=== PATIENT | female | born 1980 | race Caucasian/White ===

== ENCOUNTER → 2018-04-17 | Outpatient (CLI) | payer BC ==
--- NOTE | 2018-04-19 12:41 | MM ---
Reason for exam: screening (asymptomatic). Last mammogram was performed 5 years and 1 month ago. History: Patient is nulliparous. Taking hormonal contraceptives. Physical Findings: A clinical breast exam by your physician is recommended on an annual basis and results should be correlated with mammographic findings. MG Screening Mammo w CAD Bilateral CC and MLO view(s) were taken. Prior study comparison: March 05, 2013, mammogram, performed at [facility]. The breast tissue is heterogeneously dense. This may lower the sensitivity of mammography. No suspicious abnormality. No significant changes when compared with prior studies. ASSESSMENT: Negative, BI-RAD 1 RECOMMENDATION: Routine screening mammogram of both breasts in 1 year.
== END | disposition home or self-care (01) ==
LOC: RADMAMWWP 16:53
PROVIDERS: ATTEND Obstetrics & Gynecology
DX: Z12.31 Encounter for screening mammogram for malignant neoplasm of breast (principal)
CPT/HCPCS: 77067

== ENCOUNTER 2018-05-03 00:31 | Emergency (ER) | payer BC ==
[2018-05-03 00:55] VITALS: BP 149/88; PULSE 86; RESP 18; TEMP 98
--- NOTE | 2018-05-03 03:08 | ED ---
Wound/Laceration HPI - General Chief Complaint: Wound/Laceration Stated Complaint: Laceration, Face Time Seen by Provider: 05/03/18 02:08 Source: patient, RN notes reviewed, old records reviewed Mode of arrival: ambulatory Limitations: no limitations - History of Present Illness Initial Comments: Patient is a 38-year-old female presents returns today and she cleaning a laceration over the left cheek. Patient reports that she was in the shower no tonsillar she slipped and fell on her face hit the edge of the faucet. Tetanus is up-to-date. She denies any pain with range of motion of her mouth. No intraoral lesions. - Related Data Allergies Allergy/AdvReac Type Severity Reaction Status Date / Time No Known Allergies Allergy Verified 05/03/18 00:56 Review of Systems ROS Statement: Those systems with pertinent positive or pertinent negative responses have been documented in the HPI. ROS Other: All systems not noted in ROS Statement are negative. Past Medical History Past Medical History: No Reported History History of Any Multi-Drug Resistant Organisms: None Reported Past Surgical History: Tonsillectomy Past Psychological History: No Psychological Hx Reported Smoking Status: Current every day smoker Past Alcohol Use History: Occasional Past Drug Use History: Marijuana General Exam - General Exam Comments Initial Comments: 38-year-old male. Alert and oriented. Patient Patient distress. Limitations: no limitations General appearance: alert, in no apparent distress Head exam: Present: atraumatic, normocephalic, normal inspection Eye exam: Present: normal appearance, PERRL, EOMI. Absent: scleral icterus, conjunctival injection, periorbital swelling ENT exam: Present: normal exam, mucous membranes moist, other (Patient has a melgar-shaped 3; laceration over left cheek.) Neck exam: Present: normal inspection. Absent: tenderness, meningismus, lymphadenopathy Respiratory exam: Present: normal lung sounds bilaterally. Absent: respiratory distress, wheezes, rales, rhonchi, stridor GI/Abdominal exam: Present: soft, normal bowel sounds. Absent: distended, tenderness, guarding, rebound, rigid Extremities exam: Present: normal inspection, full ROM, normal capillary refill. Absent: tenderness, pedal edema, joint swelling, calf tenderness Back exam: Present: normal inspection Neurological exam: Present: alert, oriented X3, CN II-XII intact Psychiatric exam: Present: normal affect, normal mood Course Vital Signs 05/03/18 00:52 Temperature 98 F Pulse Rate 86 Respiratory 18 Rate Blood Pressure 149/88 O2 Sat by Pulse 98 Oximetry Procedures - Laceration Laceration #1 Site: face (Left cheek) Size (cm): 3 Description: irregular Depth: simple, single layer Anesthetic Used: lidocaine 1% Anesthesia Technique: local infiltration Amount (mls): 3 Pre-repair: wound explored, irrigated extensively Type of Sutures: nylon Size of Sutures: 6-0 Number of Sutures: 5 Technique: simple, interrupted Patient Tolerated Procedure: well, no complications Medical Decision Making - Medical Decision Making Patient is a 38-year-old female presents or return to facial laceration. She has a 3 cm margin laceration over the left cheek. Symptoms occurred after she fell shower in a hotel. His her face on the faucet. She has no muscle involvement. Patient has no intraoral lacerations. Patient's wound was closed with 5 sutures. Patient at this time advised on suture care and discussed monitoring for any signs of infection. All questions and to return parameters were discussed. Disposition Clinical Impression: Facial laceration Disposition: HOME SELF-CARE Condition: Good Instructions: Facial Laceration (ED) Additional Instructions: Patient advised to have close follow-up with primary care physician. Motrin Tylenol for pain and swelling. Ice the area. Please return to the emergency room in 5-7 days to have sutures removed. Please leave wound covered for the first 24-48 hours and then leave open to air after that time. Please use clean soap and water to clean the suture area to prevent scabbing over the top of your sutures. Please watch for any signs of infection which may include but not limited to increased pain, swelling, redness, fever or chills. Please return to the emergency room if any signs of infection do occur. Please return to the emergency room for any other concerns or complications. Is patient prescribed a controlled substance at d/c from ED?: No Referrals: None,Stated [Primary Care Provider] - 1-2 days Time of Disposition: 03:08
== END 2018-05-03 03:16 | disposition home or self-care (01) ==
LOC: EC 00:31
DX: S01.412A Laceration without foreign body of left cheek and temporomandibular area, initial encounter (principal); F17.200 Nicotine dependence, unspecified, uncomplicated; W18.2XXA Fall in (into) shower or empty bathtub, initial encounter; Y92.009 Unspecified place in unspecified non-institutional (private) residence as the place of occurrence of the external cause
CPT/HCPCS: 12013; 99283

== ENCOUNTER → 2018-08-21 | Outpatient (CLI) | payer BC ==
--- NOTE | 2018-08-22 08:47 | US ---
EXAMINATION TYPE: US transvaginal DATE OF EXAM: 08/21/2018 COMPARISON: NONE CLINICAL HISTORY: R10.2 PELVIC PAIN. Pain TECHNIQUE: Transvaginal (TV Date of LMP. 3 months ago on BCP. EXAM MEASUREMENTS: Uterus: 6.8 x 3.5 x 3.9 cm Endometrial Stripe: .2 cm 1. Uterus: Anteverted Complex fluid area seen measuring 1.8 cm. 2. Endometrium: wnl 3. Right Ovary: Obscured by overlying bowel gas 4. Left Ovary: Obscured by overlying bowel gas 5. Bilateral Adnexa: wnl 6. Posterior cul-de-sac: wnl Heterogeneous uterus is seen. Endometrial stripe is hypoechoic suggesting possible small amount of fl uid. There is a 1.8 cm slightly irregular central fluid collection in the cervix presumed in the endo metrial cervical canal. No free fluid in pelvic cul-de-sac. Neither ovary clearly identified. No suspicious adnexal lesion is seen. IMPRESSION: Suboptimal study with small amount of fluid felt within the intrauterine endometrial desmond l as well as slightly more prominent slightly irregular fluid in the endometrial canal at level of ce rvix. No adnexal lesions are seen but ovaries are not clearly identified on images saved.
== END | disposition home or self-care (01) ==
LOC: RADUSWWP 16:56
PROVIDERS: ATTEND Obstetrics & Gynecology
DX: R93.89 Abnormal findings on diagnostic imaging of other specified body structures (principal); R10.2 Pelvic and perineal pain
CPT/HCPCS: 76830

== ENCOUNTER → 2018-10-02 | Outpatient (CLI) | payer BC ==
--- NOTE | 2018-10-02 11:37 | US ---
EXAMINATION TYPE: US transvaginal DATE OF EXAM: 10/02/2018 COMPARISON: 08/21/2018 CLINICAL HISTORY: R93.89 Abnormal Pelvic Ultra Sound. Follow up from prior ultrasound TECHNIQUE: Transvaginal (TV) Date of LMP: 09/21/18 EXAM MEASUREMENTS: Uterus: 6.3 x 2.8 x 3.8 cm Endometrial Stripe: 0.3 cm Right Ovary: unable to visualize Left Ovary: unable to visualize 1. Uterus: Anteverted fluid within cervical canal . Additionally there is ill-definition between t he lower uterine segment and cervix such as on image 26. The anterior cervical contour appears irregu lar and bulky. 2. Endometrium: appears wnl 3. Right Ovary: Obscured by overlying bowel gas 4. Left Ovary: Obscured by overlying bowel gas 5. Bilateral Adnexa: appears wnl 6. Posterior cul-de-sac: wnl IMPRESSION: There is persistent fluid within the cervical canal. The cervix appears poorly defined an d bulky. Additionally there is poor definition of the anterior cervix and lower uterine segment/cervi atif junction. Correlation with direct visualization is recommended to exclude cervical neoplasm. MRI pelvis could be visualized for further assessment if clinically indicated.
== END | disposition home or self-care (01) ==
LOC: RADUSWWP 10:52
PROVIDERS: ATTEND Obstetrics & Gynecology
DX: N85.9 Noninflammatory disorder of uterus, unspecified (principal); R93.89 Abnormal findings on diagnostic imaging of other specified body structures
CPT/HCPCS: 76830

== ENCOUNTER → 2022-06-12 | Outpatient (CLI) | payer BC ==
--- NOTE | 2022-06-12 14:46 | CT ---
EXAMINATION TYPE: CT brain cspine wo con CT DLP: new onset full body tremors. mGycm, Automated exposure control for dose reduction was used. DATE OF EXAM: 06/12/2022 2:36 PM COMPARISON: None.. CLINICAL INDICATION:Female, 42 years old with history of R25.1,M50.10; 1694 TECHNIQUE: Brain: Multiple axial CT images of the brain were obtained without IV contrast. Cspine: Axial CT images from the skull base to the inferior aspect of T2 we obtained without intraven ous contrast. Coronal and sagittal reformatted images were also reviewed. FINDINGS: Brain: Extra-axial spaces: No abnormal extra-axial fluid collections. Ventricular system: Within normal limits Cerebral parenchyma: No acute intraparenchymal hemorrhage or mass effect. Mild cerebral volume loss o f the bilateral frontal lobes which is more than expected for patient's age. The dias-white junction is well differentiated. Cerebellum: Unremarkable. Mass effect: No evidence of midline shift. Intracranial vasculature: unremarkable Soft tissues: Normal. Calvarium/osseous structures: No depressed skull fracture. Paranasal sinuses and mastoid air cells: Clear. Visualized orbits: Orbital contents are intact. Cervical spine: Fracture: None. Osseous structures: Multilevel degenerative disc disease changes with endplate spurring and disc oste ophyte complex's. Vertebral alignment: Reversal of the normal cervical lordosis which may be due to patient position or muscle spasm. Spinal canal/Neural Foramina: Mild degenerative disc disease with disc space narrowing and anterior a telectasis at C4-C5 and C5-C6. No evidence for significant neural foraminal stenosis. Neck soft tissues: Prevertebral soft tissues are within normal limits. Other: The airway is patent. The lung apices are clear. IMPRESSION: 1. No acute intracranial process. 2. No evidence of cervical spine fracture. 3. Mild multilevel degenerative disc disease.
[2022-06-12 15:17] LABS: Basophils % (A) 0 %; Eosinophils # (A) 0.1 k/uL (0-0.7); Eosinophils % (A) 1 %; HCT 39.8 % (34.0-46.0); HGB 13.1 gm/dL (11.4-16.0); Lymphocytes # (A) 1.1 k/uL (1.0-4.8); Lymphocytes % (A) 16 %; MCH 36.3 pg (25.0-35.0); MCHC 32.9 g/dL (31.0-37.0); MCV 110.1 fL (80.0-100.0); Macrocytosis Marked; Mean Platelet Volume 8.2; Monocytes # (A) 0.3 k/uL (0-1.0); Monocytes % (A) 5 %; Neutrophils # (A) 5.2 k/uL (1.3-7.7); Neutrophils % (A) 76 %; Platelet Count 208 k/uL (150-450); RBC 3.61 m/uL (3.80-5.40); RDW 12.7 % (11.5-15.5); WBC 6.8 k/uL (3.8-10.6)
[2022-06-12 15:31] LABS: ALT 17 U/L (4-34); AST 52 U/L (14-36); African American GFR (CKD) >90 (>60 ml/min/1.73 sqM); Albumin 4.9 g/dL (3.5-5.0); Albumin/Globulin Ratio 1.4; Alkaline Phosphatase 46 U/L (38-126); Amylase 72 U/L (30-110); Anion Gap 13 mmol/L; Blood Urea Nitrogen 7 mg/dL (7-17); Calcium 9.1 mg/dL (8.4-10.2); Carbon Dioxide 27 mmol/L (22-30); Chloride 94 mmol/L (98-107); Globulin 3.6 g/dL; Glucose 91 mg/dL (74-99); Lipase 233 U/L (23-300); Magnesium 1.1 mg/dL (1.6-2.3); Non-African American GFR(CKD) >90 (>60 ml/min/1.73 sqM); Potassium 3.8 mmol/L (3.5-5.1); Sodium 134 mmol/L (137-145); Total Protein 8.5 g/dL (6.3-8.2)
[2022-06-12 15:47] LABS: T4, Free (Free Thyroxine) 1.17 ng/dL (0.78-2.19)
[2022-06-12 15:58] LABS: C Reactive Protein 1.6 mg/dL (<1.0)
[2022-06-12 16:42] LABS: Erythrocyte Sedimentation Rate 12 mm/hr (0-20)
== END | disposition home or self-care (01) ==
LOC: RADCTMAIN 13:59
PROVIDERS: ATTEND Family Medicine
DX: M50.122 Cervical disc disorder at C5-C6 level with radiculopathy (principal); R25.1 Tremor, unspecified
CPT/HCPCS: 70450; 72125; 80053; 82140; 82150; 82607; 82746; 83036; 83690; 83735; 84439; 84443; 84484; 85025; 85652; 86140

== ENCOUNTER → 2022-06-19 | Outpatient (CLI) | payer BC ==
[2022-06-19 19:47] LABS: African American GFR (CKD) 122.1 (60.0-200.0); Albumin 4.2 g/dL (3.8-4.9); Albumin/Globulin Ratio 1.62 (1.60-3.17); Anion Gap 5.8 mmol/L (10.00-18.00); BUN/Creat Ratio 7.71 Ratio (12.00-20.00); Blood Urea Nitrogen 5.4 mg/dL (9.0-27.0); Calcium 9.4 mg/dL (8.7-10.3); Carbon Dioxide 28.2 mmol/L (20.0-27.5); Globulin 2.6 g/dL (1.6-3.3); Non-African American GFR(CKD) 105.4 (60.0-200.0); Potassium 5.3 mmol/L (3.5-5.5); Total Bilirubin 0.3 mg/dL (0.30-1.20); Total Protein 6.8 g/dL (6.2-8.2)
== END | disposition home or self-care (01) ==
LOC: LABWHC1 08:51
PROVIDERS: ATTEND Nurse Practitioner Adult Health
DX: E83.42 Hypomagnesemia (principal); R25.1 Tremor, unspecified
CPT/HCPCS: 36415; 80053; 82306; 83735

== ENCOUNTER → 2022-08-18 | Outpatient (CLI) | payer BC ==
[2022-08-18 18:56] LABS: HCT 40.6 % (37.2-46.3); HGB 13.3 g/dL (12.0-15.0); MCHC 32.8 g/dL (32.0-37.0); MCV 106.8 fL (80.0-97.0); Mean Platelet Volume 9.5 fL (9.5-12.2); NRBC Per 100 WBC 0 /100 WBCS (0.0-0.0); Platelet Count 367 X 10*3/uL (140-440); RDW 14.3 % (11.5-14.5); Reticulocyte % 2.03 % (0.10-1.80); WBC 15.01 X 10*3/uL (4.50-10.00)
[2022-08-18 19:22] LABS: Basophils # (A) 0.12 X 10*3/uL (0.00-0.10); Basophils % (A) 0.8 %; Eosinophils # (A) 0.03 X 10*3/uL (0.04-0.35); Eosinophils % (A) 0.2 %; Immature Grans, Automated 0.5 %; Lymphocytes % (A) 15.3 %; Monocytes # (A) 0.68 X 10*3/uL (0.20-1.00); Monocytes % (A) 4.5 %; Neutrophils % (A) 78.7 %
[2022-08-18 19:23] LABS: Macrocytosis (M) 2+
[2022-08-18 20:04] LABS: African American GFR (CKD) 122.1 (60.0-200.0); Albumin 4.3 g/dL (3.8-4.9); Albumin/Globulin Ratio 1.43 (1.60-3.17); Anion Gap 15.5 mmol/L (10.00-18.00); BUN/Creat Ratio 10.43 Ratio (12.00-20.00); Blood Urea Nitrogen 7.3 mg/dL (9.0-27.0); Calcium 9.4 mg/dL (8.7-10.3); Carbon Dioxide 22.5 mmol/L (20.0-27.5); Magnesium 1.5 mg/dL (1.5-2.4); Non-African American GFR(CKD) 105.4 (60.0-200.0); Potassium 4.7 mmol/L (3.5-5.5); Total Bilirubin 0.7 mg/dL (0.30-1.20); Total Protein 7.3 g/dL (6.2-8.2)
== END | disposition home or self-care (01) ==
LOC: LAB 12:08
PROVIDERS: ATTEND Family Medicine
DX: E87.8 Other disorders of electrolyte and fluid balance, not elsewhere classified (principal); E55.9 Vitamin D deficiency, unspecified; D75.89 Other specified diseases of blood and blood-forming organs
CPT/HCPCS: 36415; 80053; 82306; 82607; 82746; 83735; 84425; 85025; 85045

== ENCOUNTER → 2022-12-06 | Outpatient (CLI) | payer BC ==
[2022-12-06 16:09] LABS: HCT 37.4 % (37.2-46.3); HGB 12.2 d/dL (12.0-15.0); MCH 35.9 pg (27.0-32.0); MCHC 32.6 d/dL (32.0-37.0); Mean Platelet Volume 10.4 FL (9.5-12.2); NRBC Per 100 WBC 0 X 10*3/uL (0.00-0.01); Platelet Count 256 X 10*3/uL (140-440); RDW 12.8 % (11.5-14.5); WBC 9.74 X 10*3/uL (4.50-10.00)
[2022-12-06 16:49] LABS: Basophils # (A) 0.06 X 10*3/uL (0.00-0.10); Basophils % (A) 0.6 %; Eosinophils # (A) 0.08 X 10*3/uL (0.04-0.35); Eosinophils % (A) 0.8 %; Lymphocytes # (A) 1.45 X 10*3/uL (0.90-5.00); Lymphocytes % (A) 14.9 %; Macrocytosis (M) 3+; Monocytes % (A) 5.1 %; Neutrophils # (A) 7.57 X 10*3/uL (1.80-7.70); Neutrophils % (A) 77.8 %
== END | disposition home or self-care (01) ==
LOC: LABWHC1 10:06
PROVIDERS: ATTEND Family Medicine
DX: E53.8 Deficiency of other specified B group vitamins (principal); E83.42 Hypomagnesemia
CPT/HCPCS: 36415; 82746; 83735; 85025

== ENCOUNTER → 2022-12-20 | Outpatient (CLI) | payer BC ==
[2022-12-22 06:19] LABS: Methylmalonic Acid <0.10 umol/L (<0.40)
[2022-12-22 09:55] LABS: Vit B1(Thiamine) 72 ug/L (38-122)
== END | disposition home or self-care (01) ==
LOC: LABWHC1 09:46
PROVIDERS: ATTEND Family Medicine
DX: D75.89 Other specified diseases of blood and blood-forming organs (principal); G60.9 Hereditary and idiopathic neuropathy, unspecified
CPT/HCPCS: 36415; 82607; 83036; 83921; 84207; 84425

== ENCOUNTER → 2023-03-08 | Outpatient (CLI) | payer BC ==
[2023-03-08 17:12] LABS: Albumin 3.9 d/dL (3.8-4.9); Protein, Total 6.5 d/dL (6.2-8.2)
[2023-03-10 11:55] LABS: Gamma Globulin 1.05 d/dL (0.70-1.50)
== END | disposition home or self-care (01) ==
LOC: LABWHC1 11:50
PROVIDERS: ATTEND Psychiatry & Neurology Neurology
DX: G90.09 Other idiopathic peripheral autonomic neuropathy (principal)
CPT/HCPCS: 36415; 84165; 85652; 86618

== ENCOUNTER → 2023-03-09 | Outpatient (CLI) | payer BC | END | disposition home or self-care (01) | LOC: LABPRL 08:37 | PROVIDERS: ATTEND Psychiatry & Neurology Neurology | DX: Z53.9 Procedure and treatment not carried out, unspecified reason (principal) ==

== ENCOUNTER → 2023-05-02 | Outpatient (CLI) | payer BC ==
--- NOTE | 2023-05-03 10:58 | MR ---
EXAMINATION TYPE: MR lumbar spine wo con DATE OF EXAM: 05/02/2023 COMPARISON: None HISTORY: Low back pain into left leg, but recently into right, Numbness in feet CONTRAST: 0 mL intravenous Gadavist. TECHNIQUE: Multiplanar, multisequence images of the lumbar spine were acquired. FINDINGS: Disc heights are preserved. Vertebral body heights are preserved. There may be a hemangioma within th e superior posterior endplate of L2. Disc desiccation is present L5-S1 L1-2 and to a mild degree L2-3. Vertebral body heights are preserve d. Alignment is preserved. No focal disc herniation or significant disc bulge is evident. No spinal canal stenosis or neural for aminal stenosis is present. IMPRESSION: 1. Mild disc desiccation L5-S1 and L1-2.
== END | disposition home or self-care (01) ==
LOC: RADMRIMAIN 10:29
PROVIDERS: ATTEND Psychiatry & Neurology Neurology
DX: M51.16 Intervertebral disc disorders with radiculopathy, lumbar region (principal); R20.0 Anesthesia of skin
CPT/HCPCS: 72148

== ENCOUNTER 2023-06-11 10:13 | Inpatient (IN) | payer BC ==
[2023-06-11 10:22] LABS: Glucose,Whole Blood 160 mg/dL (70-110)
--- NOTE | 2023-06-11 10:24 | ED ---
General Adult HPI - General Chief complaint: Seizure Stated complaint: Fall-Seizure Time Seen by Provider: 06/11/23 10:13 Source: patient, EMS, RN notes reviewed, old records reviewed Mode of arrival: EMS Limitations: no limitations - History of Present Illness Initial comments: This is a 43-year-old female presents emergency Department after having fallen out of bed according to EMS and she had a seizure when they arrived she was a little postictal and she continues to be very repetitive. Patient has multiple contusions and hematoma on her forehead patient states she thinks she got up in the middle night may have tripped over dog. Patient states she used to be a drinker years ago but she isn't any more however she did have a few drinks yesterday. Patient denies any drug use. Patient denies any headache patient denies numbness weakness. Patient denies neck pain. Patient denies any chest pain or back pain. Patient denies abdominal pain. Patient denies nausea vomiting diarrhea. - Related Data Home Medications Medication Instructions Recorded Confirmed DULoxetine HCL [Cymbalta] 20 mg PO HS 06/11/23 06/11/23 Fluocinolone/Shower Cap 1 applic TOPICAL DAILY PRN 06/11/23 06/11/23 [Fluocinolone 0.01% Scalp Oil] Ketoconazole 2% Shampoo [Nizoral] 1 applic TOPICAL Q3D PRN 06/11/23 06/11/23 l-Norgest/E.estradiol-E.estrad 1 tab PO DAILY@1445 06/11/23 06/11/23 [Seasonique 0.15-0.03-0.01 (GEQ)] Allergies Allergy/AdvReac Type Severity Reaction Status Date / Time No Known Allergies Allergy Verified 06/11/23 13:52 Review of Systems ROS Statement: Those systems with pertinent positive or pertinent negative responses have been documented in the HPI. ROS Other: All systems not noted in ROS Statement are negative. Past Medical History Past Medical History: No Reported History History of Any Multi-Drug Resistant Organisms: None Reported Past Surgical History: Tonsillectomy Past Psychological History: No Psychological Hx Reported Smoking Status: Current every day smoker Past Alcohol Use History: Occasional Past Drug Use History: Marijuana General Exam - General Exam Comments Initial Comments: GENERAL: Patient is well-developed and well-nourished. Patient is nontoxic and well- hydrated and is in no acute distress. ENT: Neck is soft and supple. No significant lymphadenopathy is noted. Oropharynx is clear. Moist mucous membranes. Neck has full range of motion without eliciting any pain. There is no thyroid enlargement and no masses were felt. Patient has a hematoma on the left forehead patient has some abrasions on the right side of the face as well as on the left forehead EYES: The sclera were anicteric and conjunctiva were pink and moist. Patient has some ecchymosis of right medial upper eyelid and also on the left lower eyelid Extraocular movements were intact and pupils were equal round and reactive to light. Eyelids were unremarkable. PULMONARY: Unlabored respirations. Good breath sounds bilaterally. No audible rales rhonchi or wheezing was noted. CARDIOVASCULAR: There is a regular rate and rhythm without any murmurs gallops or rubs. ABDOMEN: Soft and nontender with normal bowel sounds. No palpable organomegaly was noted. There is no palpable pulsatile mass. SKIN: Skin is clear with no lesions or rashes and otherwise unremarkable. NEUROLOGIC: Patient is alert and oriented x3. However she is very repetitive. Cranial nerves II through XII are grossly intact. Motor and sensory are also intact. Normal speech, volume and content. Symmetrical smile. MUSCULOSKELETAL: Normal extremities with adequate strength and full range of motion. No lower extremity swelling or edema. No calf tenderness. LYMPHATICS: No significant lymphadenopathy is noted PSYCHIATRIC: Normal psychiatric evaluation. Limitations: no limitations Course Vital Signs 06/11/23 06/11/23 06/11/23 10:14 11:25 12:00 Temperature 97.3 F L Pulse Rate 109 H 92 Respiratory 18 18 Rate Blood Pressure 164/114 148/104 155/110 O2 Sat by Pulse 97 97 Oximetry 06/11/23 13:14 Temperature Pulse Rate 92 Respiratory 18 Rate Blood Pressure 139/92 O2 Sat by Pulse 98 Oximetry Medical Decision Making - Medical Decision Making EKG was interpreted by myself. EKG shows sinus tachycardia at 101 bpm VT interval 136 dresses 7070 QT interval 356 QTC is 414. Patient's EKG shows no ST segment elevation or depression Was pt. sent in by a medical professional or institution (, PA, TURBINE MECHANIC, urgent care, hospital, or senior care...) When possible be specific @ -No Did you speak to anyone other than the patient for history (EMS, parent, family, police, friend...)? What history was obtained from this source @ -EMS gave all of his symptoms patient was very repetitive Did you review nursing and triage notes (agree or disagree)? Why? @ -I reviewed and agree with nursing and triage notes Were old charts reviewed (outside hosp., previous admission, EMS record, old EKG, old radiological studies, urgent care reports/EKG's, senior care records)? Report findings @ -I reviewed prior charts in prior laboratory Differential Diagnosis (chest pain, altered mental status, abdominal pain women, abdominal pain men, vaginal bleeding, weakness, fever, dyspnea, syncope, head ache, dizziness, GI bleed, back pain, seizure, CVA, palpatations, mental health, musculoskeletal)? @ -Differential Altered Mental Status: Hypoglycemia, DKA, hypercapnia, ETOH, overdose, CO poisoning, trauma, myxedema coma, HTN encephalopathy, infection, encephalitis, psychosis, intercranial hemorrhage, hepatic encephalopathy, meningitis, CVA, this is not meant to be an all-inclusive list EKG interpreted by me (3pts min.). @ -As above X-rays interpreted by me (1pt min.). @ -Chest x-ray shows no acute abnormality CT interpreted by me (1pt min.). @ -CT of the brain CT of the facial bones and CT of the cervical spine also no acute abnormality U/S interpreted by me (1pt. min.). @ -None done What testing was considered but not performed or refused? (CT, X-rays, U/S, labs)? Why? @ -None What meds were considered but not given or refused? Why? @ -None Did you discuss the management of the patient with other professionals (rishabh velez i.e. , PA, TURBINE MECHANIC, lab, RT, psych nurse, social work associate, head of music, teacher, ship's officer, hospice case manager)? Give summary @ -I spoke with Dr. Brewer agreed to admit the patient I admitted the patient wrote admitting orders Was smoking cessation discussed for >3mins.? @ -No Was critical care preformed (if so, how long)? @ -No Were there social determinants of health that impacted care today? How? (Homelessness, low income, unemployed, alcoholism, drug addiction, transportation, low edu. Level, literacy, decrease access to med. care, long-term, rehab)? @ -No Was there de-escalation of care discussed even if they declined (Discuss DNR or withdrawal of care, Hospice)? DNR status @ -No What co-morbidities impacted this encounter? (DM, HTN, Smoking, COPD, CAD, Cancer, CVA, ARF, Chemo, Hep., AIDS, mental health diagnosis, sleep apnea, morbid obesity)? @ -None Was patient admitted / discharged? Hospital course, mention meds given and route, prescriptions, significant lab abnormalities, going to OR and other pertinent info. @ -Patient was low on magnesium she received magnesium. Patient became less repetitive as time went on she also received an Ativan and fluids. Patient admitted to drinking but her last drink was either or Sunday and this was her first seizure. Undiagnosed new problem with uncertain prognosis? @ -No Drug Therapy requiring intensive monitoring for toxicity (Heparin, Nitro, Insulin, Cardizem)? @ -No Were any procedures done? @ -No Diagnosis/symptom? @ -Alcohol withdrawal seizure Acute, or Chronic, or Acute on Chronic? @ -Acute Uncomplicated (without systemic symptoms) or Complicated (systemic symptoms)? @ -Complicated Side effects of treatment? @ -No Exacerbation, Progression, or Severe Exacerbation? @ -No Poses a threat to life or bodily function? How? (Chest pain, [place], [place], pneumonia, PE, COPD, DKA, ARF, appy, cholecystitis, CVA, Diverticulitis, Homicidal, Suicidal, threat to staff... and all critical care pts) @ -Yes this could lead to multiple seizures and possible Diagnosis/symptom? @ -Hypomagnesemia Acute, or Chronic, or Acute on Chronic? @ -Acute Uncomplicated (without systemic symptoms) or Complicated (systemic symptoms)? @ -Complicated Side effects of treatment? @ -none Exacerbation, Progression, or Severe Exacerbation] @ -no Poses a threat to life or bodily function? @ -no - Lab Data Result diagrams: 06/11/23 10:22 06/11/23 10:22 Lab Results 06/11/23 06/11/23 06/11/23 Range/Units 10:21 10:22 10:22 WBC 7.5 (3.8-10.6) k/uL RBC 3.27 L (3.80-5.40) m/uL Hgb 12.5 (11.4-16.0) gm/dL Hct 36.7 (34.0-46.0) % MCV 112.1 H (80.0-100.0) fL MCH 38.3 H (25.0-35.0) pg MCHC 34.2 (31.0-37.0) g/dL RDW 13.2 (11.5-15.5) % Plt Count 201 (150-450) k/uL MPV 8.6 Neutrophils % 66 % Lymphocytes % 24 % Monocytes % 5 % Eosinophils % 1 % Basophils % 1 % Neutrophils # 4.9 (1.3-7.7) k/uL Lymphocytes # 1.8 (1.0-4.8) k/uL Monocytes # 0.4 (0-1.0) k/uL Eosinophils # 0.1 (0-0.7) k/uL Basophils # 0.0 (0-0.2) k/uL Manual Slide Review Performed Macrocytosis Marked A PT (10.0-12.5) sec INR (<1.2) APTT (22.0-30.0) sec Sodium 132 L (137-145) mmol/L Potassium 3.7 (3.5-5.1) mmol/L Chloride 97 L (98-107) mmol/L Carbon Dioxide 18 L (22-30) mmol/L Anion Gap 17 mmol/L BUN 7 (7-17) mg/dL Creatinine 0.70 (0.52-1.04) mg/dL Est GFR (CKD-EPI)AfAm >90 (>60 ml/min/1.73 sqM) Est GFR (CKD-EPI)NonAf >90 (>60 ml/min/1.73 sqM) Glucose 138 H (74-99) mg/dL POC Glucose (mg/dL) 160 H (70-110) mg/dL POC Glu Civil Engineering Director ID Salty Cooper Lactic Ac Sepsis Rflx Plasma Lactic Acid Wallace (0.7-2.0) mmol/L Calcium 8.4 (8.4-10.2) mg/dL Magnesium 1.3 L (1.6-2.3) mg/dL Total Bilirubin 1.6 H (0.2-1.3) mg/dL AST 59 H (14-36) U/L ALT 31 (4-34) U/L Alkaline Phosphatase 43 (38-126) U/L Troponin I (0.000-0.034) ng/mL Total Protein 7.2 (6.3-8.2) g/dL Albumin 4.3 (3.5-5.0) g/dL Serum Alcohol <10 mg/dL 06/11/23 06/11/23 06/11/23 Range/Units 10:22 10:22 10:22 WBC (3.8-10.6) k/uL RBC (3.80-5.40) m/uL Hgb (11.4-16.0) gm/dL Hct (34.0-46.0) % MCV (80.0-100.0) fL MCH (25.0-35.0) pg MCHC (31.0-37.0) g/dL RDW (11.5-15.5) % Plt Count (150-450) k/uL MPV Neutrophils % % Lymphocytes % % Monocytes % % Eosinophils % % Basophils % % Neutrophils # (1.3-7.7) k/uL Lymphocytes # (1.0-4.8) k/uL Monocytes # (0-1.0) k/uL Eosinophils # (0-0.7) k/uL Basophils # (0-0.2) k/uL Manual Slide Review Macrocytosis PT 10.7 (10.0-12.5) sec INR 1.0 (<1.2) APTT 20.3 L (22.0-30.0) sec Sodium (137-145) mmol/L Potassium (3.5-5.1) mmol/L Chloride (98-107) mmol/L Carbon Dioxide (22-30) mmol/L Anion Gap mmol/L BUN (7-17) mg/dL Creatinine (0.52-1.04) mg/dL Est GFR (CKD-EPI)AfAm (>60 ml/min/1.73 sqM) Est GFR (CKD-EPI)NonAf (>60 ml/min/1.73 sqM) Glucose (74-99) mg/dL POC Glucose (mg/dL) (70-110) mg/dL POC Glu Civil Engineering Director ID Lactic Ac Sepsis Rflx Plasma Lactic Acid Wallace 7.6 H* (0.7-2.0) mmol/L Calcium (8.4-10.2) mg/dL Magnesium (1.6-2.3) mg/dL Total Bilirubin (0.2-1.3) mg/dL AST (14-36) U/L ALT (4-34) U/L Alkaline Phosphatase (38-126) U/L Troponin I 0.021 (0.000-0.034) ng/mL Total Protein (6.3-8.2) g/dL Albumin (3.5-5.0) g/dL Serum Alcohol mg/dL 06/11/23 06/11/23 Range/Units 10:49 13:37 WBC (3.8-10.6) k/uL RBC (3.80-5.40) m/uL Hgb (11.4-16.0) gm/dL Hct (34.0-46.0) % MCV (80.0-100.0) fL MCH (25.0-35.0) pg MCHC (31.0-37.0) g/dL RDW (11.5-15.5) % Plt Count (150-450) k/uL MPV Neutrophils % % Lymphocytes % % Monocytes % % Eosinophils % % Basophils % % Neutrophils # (1.3-7.7) k/uL Lymphocytes # (1.0-4.8) k/uL Monocytes # (0-1.0) k/uL Eosinophils # (0-0.7) k/uL Basophils # (0-0.2) k/uL Manual Slide Review Macrocytosis PT (10.0-12.5) sec INR (<1.2) APTT (22.0-30.0) sec Sodium (137-145) mmol/L Potassium (3.5-5.1) mmol/L Chloride (98-107) mmol/L Carbon Dioxide (22-30) mmol/L Anion Gap mmol/L BUN (7-17) mg/dL Creatinine (0.52-1.04) mg/dL Est GFR (CKD-EPI)AfAm (>60 ml/min/1.73 sqM) Est GFR (CKD-EPI)NonAf (>60 ml/min/1.73 sqM) Glucose (74-99) mg/dL POC Glucose (mg/dL) (70-110) mg/dL POC Glu Civil Engineering Director ID Lactic Ac Sepsis Rflx Y Plasma Lactic Acid Wallace 1.1 (0.7-2.0) mmol/L Calcium (8.4-10.2) mg/dL Magnesium (1.6-2.3) mg/dL Total Bilirubin (0.2-1.3) mg/dL AST (14-36) U/L ALT (4-34) U/L Alkaline Phosphatase (38-126) U/L Troponin I (0.000-0.034) ng/mL Total Protein (6.3-8.2) g/dL Albumin (3.5-5.0) g/dL Serum Alcohol mg/dL Disposition Clinical Impression: Alcohol withdrawal seizure, Hypomagnesemia Disposition: ADMITTED IP TO THIS HOSP Referrals: Emiliano Zhou MD [Primary Care Provider] - 1-2 days Time of Disposition: 14:25
[2023-06-11 10:32] LABS: Basophils % (A) 1 %; Eosinophils # (A) 0.1 k/uL (0-0.7); Eosinophils % (A) 1 %; HCT 36.7 % (34.0-46.0); HGB 12.5 gm/dL (11.4-16.0); Lymphocytes # (A) 1.8 k/uL (1.0-4.8); Lymphocytes % (A) 24 %; MCH 38.3 pg (25.0-35.0); MCHC 34.2 g/dL (31.0-37.0); MCV 112.1 fL (80.0-100.0); Macrocytosis Marked; Mean Platelet Volume 8.6; Monocytes # (A) 0.4 k/uL (0-1.0); Monocytes % (A) 5 %; Neutrophils # (A) 4.9 k/uL (1.3-7.7); Neutrophils % (A) 66 %; Platelet Count 201 k/uL (150-450); RBC 3.27 m/uL (3.80-5.40); RDW 13.2 % (11.5-15.5); WBC 7.5 k/uL (3.8-10.6)
[2023-06-11] MEDS ORDERED: LORazepam 2 MG/ML INJ IV STA (10:34)
[2023-06-11 10:47] LABS: ALT 31 U/L (4-34); AST 59 U/L (14-36); African American GFR (CKD) >90 (>60 ml/min/1.73 sqM); Albumin 4.3 g/dL (3.5-5.0); Alcohol <10 mg/dL; Alkaline Phosphatase 43 U/L (38-126); Anion Gap 17 mmol/L; Blood Urea Nitrogen 7 mg/dL (7-17); Calcium 8.4 mg/dL (8.4-10.2); Carbon Dioxide 18 mmol/L (22-30); Chloride 97 mmol/L (98-107); Glucose 138 mg/dL (74-99); Magnesium 1.3 mg/dL (1.6-2.3); Non-African American GFR(CKD) >90 (>60 ml/min/1.73 sqM); Potassium 3.7 mmol/L (3.5-5.1); Prothrombin Time 10.7 sec (10.0-12.5); Sodium 132 mmol/L (137-145); Total Bilirubin 1.6 mg/dL (0.2-1.3); Total Protein 7.2 g/dL (6.3-8.2)
[2023-06-11 10:53] LABS: Partial Thromboplastin Time 20.3 sec (22.0-30.0)
[2023-06-11] MEDS ORDERED: SODIUM CHLORIDE 0.9% 500 ML 500 ML IV ONE (10:57)
[2023-06-11] MEDS ORDERED: SODIUM CHLORIDE 0.9% 1,000 ML IV ONE ×2 (10:57→14:25)
--- NOTE | 2023-06-11 11:32 | CT ---
EXAMINATION TYPE: CT brain maria e wo con DATE OF EXAM: 06/11/2023 COMPARISON: 06/12/2022 HISTORY: seizure, left eye swelling CT DLP: 1103.6 mGycm, Automated exposure control for dose reduction was used. CONTRAST: Patient injected with 0 mL of Isovue 300. CT of the brain is performed utilizing 3 mm thick sections through the posterior fossa and 3 mm thick sections through the remaining calvarium. Study is performed within 24 hours of arrival to the hospital. No abnormal hyperdensity is present to suggest an acute intracranial hemorrhage. No mass lesion is evident. No acute infarcts are evident. Ventricles and sulci are prominent for the patient age. There is some prominence of the extra-axial spaces over the frontal regions. Paranasal sinuses and mastoid air cells within the [id number] are clear. There is soft tissue swel ling over the left frontal region. IMPRESSIONS: 1. Stable Atrophy. 2. No acute intracranial process radiographically apparent. Follow-up MRI can be performed as clinica lly indicated. CT cervical spine. COMPARISON: None CT of the cervical spine is performed in the axial plane at 2 mm thick sections. Reconstructed image s in the coronal, and sagittal plane are reviewed on the computer. No acute fractures are evident. There is a kyphosis in the upper cervical spine. Degenerative disc changes with loss of disc height a re present C3-4 through C6-7 anterior and posterior vertebral body spurring is present C6-7. Anterior vertebral body spurring at C5-6. No spinal canal stenosis. Vertebral body heights are preserved. No neural foraminal stenosis is evident. IMPRESSION: 1. No acute osseous abnormality. 2. Degenerative disc changes discussed above. 3. Cervical kyphosis which could be related to spasm.
--- NOTE | 2023-06-11 11:36 | CT ---
EXAMINATION TYPE: CT facial bones wo con DATE OF EXAM: 06/11/2023 COMPARISON: None HISTORY: seizure, left eye swelling CT DLP: 1103.6 mGycm CONTRAST: 0 mL of The paranasal sinuses are examined in the axial plane at 2 mm thick sections. Reconstructed images i n the coronal plane were obtained. There is soft tissue swelling over the left frontal region. No underlying fractures evident. The maxillary sinuses are clear. The ethmoid air cells are clear. The sphenoid sinuses are clear. The frontal sinuses are clear. The septum is evaluated. There is septal deviation to the left. The ostiomeatal units are patent. IMPRESSION: 1. No acute osseous abnormality. Mild soft tissue swelling is over the left supraorbital region.
[2023-06-11] MEDS ORDERED: hydrALAZINE HCL 20 MG/ML 1 ML VIAL IVP STA (12:22)
--- NOTE | 2023-06-11 12:47 | XR ---
EXAMINATION TYPE: XR chest 2V DATE OF EXAM: 06/11/2023 12:39 PM CLINICAL INDICATION:Female, 43 years old with history of Difficulty breathing ; [facility] COMPARISON: None TECHNIQUE: XR chest 2V Frontal and lateral views of the chest. FINDINGS: Lungs/Pleura: There is no evidence of pleural effusion, focal consolidation, or pneumothorax. Pulmonary vascularity: Unremarkable. Heart/mediastinum: Cardiomediastinal silhouette is unremarkable. Musculoskeletal: No acute osseous pathology. Other findings: None IMPRESSION: No acute cardiopulmonary disease/process.
[2023-06-11] MEDS: MAGNESIUM SULFATE-D5W PMX 1 GM in DEXTROSE/WATER 1 100ML.BAG IVPB SCH ×2 (12:48→17:11)
[2023-06-11] MEDS ORDERED: LORazepam 2 MG/ML INJ IV PRN (14:09)
[2023-06-11] MEDS ORDERED: THIAMINE 100 MG/ML 2 ML VIAL IM STA (14:09)
[2023-06-11] MEDS ORDERED: LORazepam 0.5 MG TAB PO PRN (14:09)
--- NOTE | 2023-06-11 16:04 | P.HPIM ---
History of Present Illness H&P Date: 06/11/23 History of Presenting Illness: Patient is a pleasant 43-year-old female with a past medical history of daily alcohol use/abuse, cannabis use, and nicotine dependence. She presented to the emergency department secondary to reports of falling out of bed hitting her head on the nightstand. Per ER documentation EMS reported witnessed seizure activity followed by a postictal state. Patient is unsure of why she fell out of bed, does not recall. States that she may have gotten up and tripped over her dog but does not remember actual fall. Fall was reportedly heard by patient's parents who then came to her assistance and called EMS. Patient does admit to daily alcohol use approximately 3 drinks daily with last drink reported on Sunday06/08/23. Upon arrival to our facility, patient underwent full evaluation. Labs upon arrival show blood pressure 164/114, heart rate 109, respiratory rate 18, temp 97.3F, SpO2 of 97% on room air. CT brain completed negative for acute intracranial process showing stable atrophy. CT cervical spine negative for acute osseous abnormality showing degenerative disc changes with cervical kyphosis. CT face completed negative for acute osseous abnormality showing mild soft tissue swelling over the left supraorbital region. EKG completed showing sinus tachycardia at 101 bpm with no noted T wave or ST abnormality showing no signs of acute ischemia. Labs completed and reviewed. CBC showing macrocytosis with MCV of 112.1. BMP revealing hyponatremia with sodium of 132, hyperchloremia with chloride of 97, hypocarbia with bicarb of 18, an elevated anion gap of 17. Blood glucose was 138. Initial lactate 7.6. Magnesium 1.3. Liver profile revealing Bilirubin elevated at 1.6 and AST elevated at 59. Troponin was 0.021. Serum alcohol less than 10. Patient admitted under our services with consultation to neurology. Upon examination at bedside, patient reports mild pain to her head/face. She denies having any other injuries or any other complaints of pain or discomfort at this time. Patient denies having any changes in her vision, hearing, chest pain, palpitations, shortness of breath, abdominal pain, nausea, vomiting, or experiencing any numbness/tingling/weakness in extremities. Patient does report she has bilateral lower extremity peripheral neuropathy which is a chronic and ongoing thing and is under treatment outpatient with her PCP and recently underwent an MRI of her lumbar spine but showed no significant abnormalities. Patient denies involuntary loss of bowel or bladder and denies biting her tongue but does have swelling in her upper lip where she either bit her lip or injured on nightstand when she hit her head during fall from bed. Review of systems: Pertinent positives and negatives as discussed in HPI, a complete review of systems was performed and all other systems are negative. Physical exam: Vital signs reviewed and stable. General: Nontoxic, no distress and appears stated age. Derm: Skin warm and dry, normal coloration for ethnicity. Head: Normocephalic and symmetric. Patient with periorbital ecchymosis bilaterally and hematoma to left forehead Eyes: EOMs intact, no lid lag, and anicteric sclera Mouth: mucus membranes moist. Dried blood noted on lip, patient with swelling of upper lip no obvious lacerations. Cardiovascular: regular rate and rhythm with normal S1S2, no murmur, positive posterior tibial pulses bilaterally, and cap refill < 2 seconds. Lungs: Respirations even, regular, and unlabored on room air. Lungs CTA bilaterally, no rhonchi, no rales, no wheezing, and no accessory muscle usage. Abdominal: soft, nontender to palpation, no guarding, no appreciable organomegaly Ext: ROM intact. No gross muscle atrophy, no edema, no contractures Neuro: Speech clear, face symmetrical and CN II-XII grossly intact with no noted focal neuro deficits Psych: Alert and oriented to person, place, time, and situation. Appropriate and pleasant affect. Assessment and Plan of Care: Seizure activity, witnessed by EMS Fall with head/facial trauma/injury Hypomagnesemia High anion gap metabolic acidosis Lactic acidosis, believed to be reactive secondary to seizure activity. Hypochloremic hyponatremia Hyperbilirubinemia with elevated liver enzymes, suspect due to a daily alcohol use/abuse -Order placed for monitoring of CIWA scores and patient to be medicated with Ativan 0.5 mg every 4 hours as needed for CIWA score of 4-5, Ativan 1 mg every 4 hours for CIWA score of 6-7, Ativan 2 mg every 3 hours CIWA score of 8-9, and Ativan 2 mg every 2 hours forr CIWA score of 10 or greater. -Continuous IV fluid hydration with 0.9% normal saline at 100 mL per hour. -Orders placed for Thiamine 100 mg daily, Multivitamin daily and Folate 1 mg daily. -Consult placed to neurology -Neuro checks and place every 4 hours. -Seizure, fall, aspiration, and elopement precautions in place. -Urine drug screen and urine hCG to be completed -Continued close monitoring of electrolytes and replace as needed. Patient received 2 g of magnesium sulfate IVPB in the emergency department. -Repeat lactate monitor for resolution. Believed to be elevated secondary to witnessed seizure activity. -Telemetry monitoring. Nicotine dependence Cannabinoid use Recommend cessation of use. Nicotine patch 21 mg daily. Data and imaging reviewed: As stated above in HPI. CODE STATUS: Full code DVT prophylaxis: Lovenox Anticipated discharge date: Clinical course to determine Anticipated discharge place: Home Patient was seen independently by Nurse Practitioner. This document was prepared using [employer] dictation software. Please allow for errors in fire coordinator while rare they do occur. I reviewed the documentation as provided by the BOWEN above, who is the original author of this note. I agree with the documented assessment and plan, with the following changes: none Past Medical History Past Medical History: No Reported History History of Any Multi-Drug Resistant Organisms: None Reported Past Surgical History: Tonsillectomy Past Psychological History: No Psychological Hx Reported Smoking Status: Current every day smoker Past Alcohol Use History: Occasional Past Drug Use History: Marijuana Medications and Allergies Home Medications Medication Instructions Recorded Confirmed Type DULoxetine HCL [Cymbalta] 20 mg PO HS 06/11/23 06/11/23 History Fluocinolone/Shower Cap 1 applic TOPICAL DAILY PRN 06/11/23 06/11/23 History [Fluocinolone 0.01% Scalp Oil] Ketoconazole 2% Shampoo [Nizoral] 1 applic TOPICAL Q3D PRN 06/11/23 06/11/23 History l-Norgest/E.estradiol-E.estrad 1 tab PO DAILY@1445 06/11/23 06/11/23 History [Seasonique 0.15-0.03-0.01 (GEQ)] Allergies Allergy/AdvReac Type Severity Reaction Status Date / Time No Known Allergies Allergy Verified 06/11/23 13:52 Physical Exam Osteopathic Statement: *. No significant issues noted on an osteopathic structural exam other than those noted in the History and Physical/Consult. Vitals: Vital Signs Temp Pulse Resp BP Pulse Ox 06/11/23 13:14 92 18 139/92 98 01/22/24 12:00 155/110 06/11/23 11:25 92 18 148/104 97 06/11/23 10:14 97.3 F L 109 H 18 164/114 97 Intake and Output 06/10/23 06/11/23 06/11/23 22:59 06:59 14:59 Other: Weight 66.678 kg Results CBC & Chem 7: 06/11/23 10:22 06/11/23 10:22 Labs: Abnormal Lab Results - Last 24 Hours (Table) 06/11/23 06/11/23 06/11/23 Range/Units 10:21 10:22 10:22 RBC 3.27 L (3.80-5.40) m/uL MCV 112.1 H (80.0-100.0) fL MCH 38.3 H (25.0-35.0) pg Macrocytosis Marked A APTT (22.0-30.0) sec Sodium 132 L (137-145) mmol/L Chloride 97 L (98-107) mmol/L Carbon Dioxide 18 L (22-30) mmol/L Glucose 138 H (74-99) mg/dL POC Glucose (mg/dL) 160 H (70-110) mg/dL Plasma Lactic Acid Wallace (0.7-2.0) mmol/L Magnesium 1.3 L (1.6-2.3) mg/dL Total Bilirubin 1.6 H (0.2-1.3) mg/dL AST 59 H (14-36) U/L 06/11/23 06/11/23 Range/Units 10:22 10:22 RBC (3.80-5.40) m/uL MCV (80.0-100.0) fL MCH (25.0-35.0) pg Macrocytosis APTT 20.3 L (22.0-30.0) sec Sodium (137-145) mmol/L Chloride (98-107) mmol/L Carbon Dioxide (22-30) mmol/L Glucose (74-99) mg/dL POC Glucose (mg/dL) (70-110) mg/dL Plasma Lactic Acid Wallace 7.6 H* (0.7-2.0) mmol/L Magnesium (1.6-2.3) mg/dL Total Bilirubin (0.2-1.3) mg/dL AST (14-36) U/L
[2023-06-11 17:00] LABS: Amphetamine Screen,Urine Not Detected (NotDetected); Barbiturate Screen,Urine Not Detected (NotDetected); Benzodiazepines Screen,Urine Detected (NotDetected); Cocaine Screen,Urine Not Detected (NotDetected); Methadone Screen, Urine Not Detected (NotDetected); Opiate Screen,Urine Not Detected (NotDetected); Oxycodone Screen, Urine Not Detected (NotDetected); Phencyclidine Screen,Urine Not Detected (NotDetected); Tricyclic Antidepressant,Urine Not Detected (NotDetected); Urn Cannabinoid Scrn Not Detected (NotDetected)
[2023-06-11] MEDS: NICOTINE 21MG/24HR PATCH TRANSDERM SCH (17:15)
[2023-06-11] MEDS: LORazepam 2 MG/ML INJ IV PRN ×2 (21:23→23:57)
[2023-06-11] MEDS: ACETAMINOPHEN TAB 325 MG TAB PO PRN (22:38)
[2023-06-12] MEDS: LORazepam 2 MG/ML INJ IV PRN ×9 (05:18→23:20)
[2023-06-12] MEDS: ENOXAPARIN 40 MG/0.4 ML SYRINGE SQ SCH (08:12)
[2023-06-12] MEDS: NICOTINE 21MG/24HR PATCH TRANSDERM SCH (08:12)
[2023-06-12] MEDS: THIAMINE 100 MG TAB PO SCH (08:12)
[2023-06-12] MEDS: MULTIVITAMINS, THERA 1 EACH TAB PO SCH (08:12)
[2023-06-12] MEDS: FOLIC ACID 1 MG TAB PO SCH (08:12)
[2023-06-12 11:25] LABS: HCT 29.7 % (37.2-46.3); HGB 10.1 g/dL (12.0-15.0); MCH 37.4 pg (27.0-32.0); Mean Platelet Volume 10.7 FL (9.5-12.2); NRBC Per 100 WBC 0 X 10*3/uL (0.00-0.01); Platelet Count 162 X 10*3/uL (140-440); RDW 13.6 % (11.5-14.5); WBC 6.72 X 10*3/uL (4.50-10.00)
[2023-06-12] MEDS ORDERED: LORazepam 2 MG/ML INJ IV STA ×4 (11:25→18:09)
[2023-06-12 11:59] LABS: ALT 11 U/L (8-44); AST 47 U/L (13-35); Albumin 3.6 g/dL (3.8-4.9); Albumin/Globulin Ratio 1.64 Ratio (1.60-3.17); Alkaline Phosphatase 31 U/L (41-126); BUN/Creat Ratio 7.83 Ratio (12.00-20.00); Blood Urea Nitrogen 4.7 mg/dL (9.0-27.0); Calcium 7.8 mg/dL (8.7-10.3); Carbon Dioxide 23.4 mmol/L (21.6-31.8); Chloride 99 mmol/L (96-109); Globulin 2.2 g/dL (1.6-3.3); Glucose 68 mg/dL (70-110); Magnesium 1.7 mg/dL (1.5-2.4); Potassium 3.6 mmol/L (3.5-5.5); Sodium 135 mmol/L (135-145); Total Protein 5.8 g/dL (6.2-8.2)
[2023-06-12] MEDS: chlordiazePOXIDE 25 MG CAP PO SCH ×3 (12:45→20:53)
--- NOTE | 2023-06-12 13:42 | EEG ---
ELECTROENCEPHALOGRAM REPORT PREAMBLE: This is a 43-year-old female with possible seizure. The patient at present is confused and having visual and auditory hallucinations. The patient does have history of alcohol abuse. The patient also suffered from a fall. EEG FINDINGS: This is a 21-channel digital EEG recorded with video component, utilizing 10/20 international system with referential and bipolar montages. The recording starts and continues with presence of excessive amount of low-voltage fast frequency beta activity seen in bihemispheric region. Background does not seem to be reactive to eye opening or closing. Photic stimulation or hyperventilation were not performed. Some myogenic activity was seen in bilateral temporal region which obscures underlying cerebral activity. Different stages of sleep were not seen. No focal or generalized epileptiform activity was seen. EKG channel showed no obvious arrhythmia. IMPRESSION: This is an abnormal EEG due to presence of excessive amount of low-voltage fast frequency beta activity suggestive of medication effect. No epileptiform activity was seen. MMBRITTAL / IJN: [id number] /
[2023-06-12] MEDS ORDERED: DEXTROSE 50% SYRINGE 50 ML IVP PRN ×2 (14:08)
--- NOTE | 2023-06-12 14:14 | P.PN ---
Subjective Progress Note Date: 06/12/23 Hospital Course: Patient is a pleasant 43-year-old female with a past medical history of daily alcohol use/abuse, cannabis use, and nicotine dependence. She presented to the emergency department secondary to reports of falling out of bed hitting her head on the nightstand. Per ER documentation EMS reported witnessed seizure activity followed by a postictal state. Patient is unsure of why she fell out of bed, does not recall. States that she may have gotten up and tripped over her dog but does not remember actual fall. Fall was reportedly heard by patient's parents who then came to her assistance and called EMS. Patient does admit to daily alcohol use approximately 3 drinks daily with last drink reported on Sunday06/08/23. Upon arrival to our facility, patient underwent full evaluation. Labs upon arrival show blood pressure 164/114, heart rate 109, respiratory rate 18, temp 97.3F, SpO2 of 97% on room air. CT brain completed negative for acute intracranial process showing stable atrophy. CT cervical spine negative for acute osseous abnormality showing degenerative disc changes with cervical kyphosis. CT face completed negative for acute osseous abnormality showing mild soft tissue swelling over the left supraorbital region. EKG completed showing sinus tachycardia at 101 bpm with no noted T wave or ST abnormality showing no signs of acute ischemia. Labs completed and reviewed. CBC showing macrocytosis with MCV of 112.1. BMP revealing hyponatremia with sodium of 132, hyperchloremia with chloride of 97, hypocarbia with bicarb of 18, an elevated anion gap of 17. Blood glucose was 138. Initial lactate 7.6. Magnesium 1.3. Liver profile revealing Bilirubin elevated at 1.6 and AST elevated at 59. Troponin was 0.021. Serum alcohol less than 10. Patient admitted under our services with consultation to neurology. Physical exam: Vital signs reviewed and stable. General: Nontoxic, no distress and appears stated age. Derm: Skin warm and dry, normal coloration for ethnicity. Head: Normocephalic and symmetric. Patient with periorbital ecchymosis bilaterally and hematoma to left forehead Eyes: EOMs intact, no lid lag, and anicteric sclera Mouth: mucus membranes moist. Mild swelling of upper lip. Cardiovascular: regular rate and rhythm with normal S1S2, no murmur, positive posterior tibial pulses bilaterally, and cap refill < 2 seconds. Lungs: Respirations even, regular, and unlabored on room air. Lungs CTA bilaterally, no rhonchi, no rales, no wheezing, and no accessory muscle usage. Abdominal: soft, nontender to palpation, no guarding, no appreciable organo megaly Ext: ROM intact. No gross muscle atrophy, no edema, no contractures Neuro: Speech clear, face symmetrical and CN II-XII grossly intact with no noted focal neuro deficits. Patient showing signs of withdrawal, she is unable to sit still with active tremors noted. Psych: Alert and oriented to person, place, time, and situation. Appropriate and pleasant affect. Assessment and Plan of Care: Alcohol withdraw with delirium tremens Seizure, suspect alcohol withdrawal seizure Fall with head/facial trauma/injury Hypomagnesemia High anion gap metabolic acidosis Lactic acidosis, believed to be reactive secondary to seizure activity. Hypochloremic hyponatremia Hyperbilirubinemia with elevated liver enzymes, suspect due to a daily alcohol use/abuse -Continue monitoring of CIWA scores and patient to be medicated with Ativan 0.5 mg every 4 hours as needed for CIWA score of 4-5, Ativan 1 mg every 4 hours for CIWA score of 6-7, Ativan 2 mg every 3 hours CIWA score of 8-9, and Ativan 2 mg every 2 hours forr CIWA score of 10 or greater. Current CIWA score is 14 -Continuous IV fluid hydration with 0.9% normal saline at 100 mL per hour. -Orders placed for Thiamine 100 mg daily, Multivitamin daily and Folate 1 mg daily. -Consult placed to neurology -Neuro checks and place every 4 hours. -Seizure, fall, aspiration, and elopement precautions in place. -Urine drug screen positive for benzodiazepines and urine hCG was negative for -Continued close monitoring of electrolytes and replace as needed. Patient received 2 g of magnesium sulfate IVPB in the emergency department. -Repeat lactate monitor for resolution. Believed to be elevated secondary to witnessed seizure activity. -Telemetry monitoring. Hypoglycemia Blood glucose 68 this morning. Patient placed on glycemic protocol with Accu- Cheks every 6 hours. Nicotine dependence Cannabinoid use Recommend cessation of use. Nicotine patch 21 mg daily. Data and imaging reviewed: Labs completed and reviewed. CBC showing normocytic anemia with hemoglobin 10.1. BMP chloride of 99, bicarb of 23.4, and continued elevated anion gap of 12.60. Blood glucose 68. Magnesium 1.7. Liver profile showing elevated ALT of 47 and alkaline phosphatase low at 31. Vital signs reviewed. Blood pressure 165/86, heart rate 98, respiratory rate 18, temp 98.2 F, and SpO2 of 98% on room air. CODE STATUS: Full code DVT prophylaxis: Lovenox Anticipated discharge date: Clinical course to determine Anticipated discharge place: Home Patient was seen independently by Nurse Practitioner. This document was prepared using [employer] dictation software. Please allow for errors in employment consultant while rare they do occur. Objective - Vital Signs Vital signs: Vital Signs Temp 98.2 F 06/12/23 07:38 Pulse 98 06/12/23 07:38 Resp 18 06/12/23 07:38 BP 165/86 06/12/23 07:38 Pulse Ox 98 06/12/23 07:38 FiO2 Intake & Output 06/11/23 06/12/23 06/12/23 18:59 06:59 18:59 Weight 66.678 kg Other: Voiding Method Toilet Bedside Commode # Voids 1 - Labs CBC & Chem 7: 06/12/23 05:42 06/12/23 05:42 Labs: Abnormal Lab Results - Last 24 Hours (Table) 06/11/23 06/11/23 06/11/23 Range/Units 10:21 10:22 10:22 RBC 3.27 L (3.80-5.40) m/uL MCV 112.1 H (80.0-100.0) fL MCH 38.3 H (25.0-35.0) pg Macrocytosis Marked A APTT (22.0-30.0) sec Sodium 132 L (137-145) mmol/L Chloride 97 L (98-107) mmol/L Carbon Dioxide 18 L (22-30) mmol/L Glucose 138 H (74-99) mg/dL POC Glucose (mg/dL) 160 H (70-110) mg/dL Plasma Lactic Acid Wallace (0.7-2.0) mmol/L Magnesium 1.3 L (1.6-2.3) mg/dL Total Bilirubin 1.6 H (0.2-1.3) mg/dL AST 59 H (14-36) U/L U Benzodiazepines Scrn (NotDetected) 06/11/23 06/11/23 06/11/23 Range/Units 10:22 10:22 15:53 RBC (3.80-5.40) m/uL MCV (80.0-100.0) fL MCH (25.0-35.0) pg Macrocytosis APTT 20.3 L (22.0-30.0) sec Sodium (137-145) mmol/L Chloride (98-107) mmol/L Carbon Dioxide (22-30) mmol/L Glucose (74-99) mg/dL POC Glucose (mg/dL) (70-110) mg/dL Plasma Lactic Acid Wallace 7.6 H* (0.7-2.0) mmol/L Magnesium (1.6-2.3) mg/dL Total Bilirubin (0.2-1.3) mg/dL AST (14-36) U/L U Benzodiazepines Scrn Detected H (NotDetected)
[2023-06-12] MEDS: MAGNESIUM SULFATE-D5W PMX 1 GM in DEXTROSE/WATER 1 100ML.BAG IVPB SCH ×2 (15:32→16:33)
[2023-06-12 17:56] LABS: Glucose,Whole Blood 111 mg/dL (70-110)
[2023-06-12] MEDS: PYRIDOXINE 50 MG TAB PO SCH (18:19)
[2023-06-12 19:30] LABS: Glucose,Whole Blood 122 mg/dL (70-110)
[2023-06-12] MEDS ORDERED: Magnesium Replacement Protocol 1 EACH MISC MISCELLANE PRN (19:39)
[2023-06-12] MEDS ORDERED: Potassium Replacement Protocol 1 EACH MISC MISCELLANE PRN ×2 (19:39→21:59)
[2023-06-12] MEDS ORDERED: NALOXONE 0.4 MG/ML 1 ML VIAL IV PRN (19:39)
[2023-06-12 19:50] LABS: Glucose,Whole Blood 105 mg/dL (70-110)
[2023-06-12] MEDS: DEXMEDETOMIDINE/0.9% NACL(PMX) 400 MCG in EMPTY BAG 1 BAG IV SCH (19:56)
[2023-06-12] MEDS ORDERED: cloNIDine HCL 0.2 MG TAB PO PRN (20:39)
[2023-06-12] MEDS: DULoxetine HCL 20 MG CAPSULE.DR PO SCH (20:53)
[2023-06-12 21:01] LABS: HCT 32.3 % (34.0-46.0); HGB 11.3 gm/dL (11.4-16.0); MCH 38.7 pg (25.0-35.0); MCV 110.8 fL (80.0-100.0); Macrocytosis Marked; Mean Platelet Volume 8.1; Platelet Count 194 k/uL (150-450); RBC 2.91 m/uL (3.80-5.40); RDW 13.1 % (11.5-15.5); WBC 7.5 k/uL (3.8-10.6)
[2023-06-12 21:19] LABS: African American GFR (CKD) >90 (>60 ml/min/1.73 sqM); Anion Gap 9 mmol/L; Blood Urea Nitrogen 2 mg/dL (7-17); Calcium 8.4 mg/dL (8.4-10.2); Carbon Dioxide 23 mmol/L (22-30); Chloride 98 mmol/L (98-107); Glucose 97 mg/dL (74-99); Non-African American GFR(CKD) >90 (>60 ml/min/1.73 sqM); Potassium 3.1 mmol/L (3.5-5.1); Sodium 130 mmol/L (137-145)
[2023-06-12] MEDS: POTASSIUM CHLORIDE 10 MEQ in WATER FOR INJECTION 1 100ML.BAG IVPB SCH ×2 (22:12→23:20)
--- NOTE | 2023-06-12 23:02 | P.MHFACE ---
Face to Face Restrain/Seclus - Evaluation Patient's Immediate Situation: Endangers self safety Patient's Reaction to the Intervention: Calm Patient's Medical & Behavioral Condition: Sleeping, Drowsy Need to Continue or Terminate Restraint or Seclusion: Terminate Face to Face Eval of Restraint Date: 06/12/23 Face to Face Eval of Restraint Time: 21:35
[2023-06-13 00:35] LABS: Glucose,Whole Blood 131 mg/dL (70-110)
[2023-06-13] MEDS: POTASSIUM CHLORIDE 10 MEQ in WATER FOR INJECTION 1 100ML.BAG IVPB SCH ×2 (00:36→01:41)
[2023-06-13] MEDS: DEXMEDETOMIDINE/0.9% NACL(PMX) 400 MCG in EMPTY BAG 1 BAG IV SCH (00:38)
[2023-06-13] MEDS: SODIUM CHLORIDE 0.9% 1,000 ML IV SCH ×2 (00:38→17:07)
--- NOTE | 2023-06-13 00:46 | P.CNPUL ---
History of Present Illness Consult date: 06/13/23 Requesting physician: Gregroy Dill Reason for consult: other (ICU management, possible alcohol withdrawal) Chief complaint: Fall, possible seizure History of present illness: I am seeing this patient in new consultation today June 13, 2023 in the intensive care unit after she was transferred from the general medical floor late last night. She was reportedly confused and combative. Patient was originally admitted back on June 11 for fall and possible alcohol withdrawal seizure. Patient has past medical history significant for alcoholism. Last drink was reportedly the day prior to admission. As stated above, the patient had a fall prior to coming in. She has bilateral periorbital ecchymosis. CT of the head and C-spine negative for any intracranial hemorrhage or C-spine fracture. The EMS reported that on their arrival, the patient had generalized seizure-like activity. No reported history of seizures. EEG did not show any epileptiform activity. She was originally admitted to the general medical floor. Late last night, the patient became severely delirious and combative. She required transfer to the intensive care unit, where she was started on a Precedex infusion. She also received multiple doses of Ativan. I believe she has received a total of 17 mg of IV Ativan in the last 24 hours. She did temporarily require soft restraints, which are now discontinued. Patient is currently sleeping in bed, on room air, in no acute distress. There is a product safety tester at bedside. The bedside nurse tells me that the patient was having auditory and visual hallucinations earlier. Reportedly, seeing bugs crawling on the TV. CIWA was scored at 36 prior to transfer. Precedex is infusing at 1 mcg/kg/h. CBC from yesterday was fairly unremarkable including a WBC count of 7.5, hemoglobin 11.3, hematocrit 32.3, platelets 194. BMP has a sodium 130, potassium 3.1, chloride 98, serum bicarb 23, BUN 2, creatinine 0.47, and glucose of 97. Urine toxicology screen was negative for everything except benzodiazepines, which she was receiving here. Serum alcohol level less than 10. Urine test negative. ECG consistent with sinus tachycardia. Vital signs are stable. Review of Systems ROS unobtainable: due to mental status Past Medical History Past Medical History: No Reported History History of Any Multi-Drug Resistant Organisms: None Reported Past Surgical History: Adenoidectomy, Tonsillectomy Past Anesthesia/Blood Transfusion Reactions: Family History of Problems w/ Anesthesia Additional Past Anesthesia/Blood Transfusion Reaction / Comment(s): No history of blood transfusion. Past Psychological History: No Psychological Hx Reported, Anxiety Additional Psychological History / Comment(s): Brother 21 years ago in a MVA, Mother states this is when the drinking started. Mother stated that patient felt guilt. Smoking Status: Current every day smoker Past Alcohol Use History: Occasional Past Drug Use History: Marijuana Medications and Allergies Home Medications Medication Instructions Recorded Confirmed Type DULoxetine HCL [Cymbalta] 20 mg PO HS 06/11/23 06/11/23 History Fluocinolone/Shower Cap 1 applic TOPICAL DAILY PRN 06/11/23 06/11/23 History [Fluocinolone 0.01% Scalp Oil] Ketoconazole 2% Shampoo [Nizoral] 1 applic TOPICAL Q3D PRN 06/11/23 06/11/23 History l-Norgest/E.estradiol-E.estrad 1 tab PO DAILY@1445 06/11/23 06/11/23 History [Seasonique 0.15-0.03-0.01 (GEQ)] Allergies Allergy/AdvReac Type Severity Reaction Status Date / Time No Known Allergies Allergy Verified 06/11/23 13:52 Physical Exam Vitals: Vital Signs Temp Pulse Pulse Resp BP BP Pulse Ox 06/12/23 23:00 75 14 140/87 97 06/12/23 22:00 80 15 144/89 96 06/12/23 21:16 98.3 F 89 17 140/97 96 06/12/23 21:00 85 17 140/97 99 06/12/23 20:00 98.3 F 112 H 10 L 170/110 96 06/12/23 15:31 106 H 20 178/109 99 06/12/23 12:53 97.6 F 116 H 20 170/96 100 06/12/23 07:38 98.2 F 98 18 165/86 98 06/12/23 00:57 97.3 F L 110 H 17 152/80 97 Intake and Output 06/12/23 06/12/23 06/13/23 14:59 22:59 06:59 Intake Total 120 269.340 123.751 Balance 120 269.340 123.751 Intake: IV 120 120 0.9 20 20 Potassium Chloride 10 meq 100 100 In Water For Injection 1 100ml.bag @ 100 mls/hr IVPB Q1HR [facility] Rx#: [id number] Intake, IV Titration 31.340 3.751 Amount Dexmedetomidine/0.9% NaCl 31.340 3.751 (Pmx) 400 mcg In Empty Bag 1 bag @ 0.2 MCG/KG/HR 3.334 mls/hr IV .Q24H [facility] Rx#:[id number] Oral 120 118 Other: Voiding Method Diaper # Voids 0 0 GENERAL EXAM: Obtunded, 43-year-old white female, in no acute distress. HEAD: Normocephalic. There is bilateral periorbital ecchymosis and swelling EYES: Normal reaction of pupils, pupils are small, 1 mm, equal size. NOSE: Clear with pink turbinates. THROAT: No erythema or exudates. NECK: No masses, no JVD. CHEST: No chest wall deformity. LUNGS: Equal air entry with no crackles, wheeze, rhonchi or dullness. On room air. No conversational dyspnea or accessory muscle use.. CVS: S1 and S2 normal with no audible murmur, regular rhythm. No extra heart sounds ABDOMEN: No hepatosplenomegaly, active bowel sounds, no guarding or rigidity. SPINE: No scoliosis or deformity SKIN: No rashes CENTRAL NERVOUS SYSTEM: Obtunded, no focal deficits, she does withdrawal to pain in all 4 extremities. EXTREMITIES: There is no peripheral edema, clubbing, or cyanosis. Peripheral pulses are intact. Results - Laboratory Findings CBC and BMP: 06/12/23 20:33 06/12/23 20:33 PT/INR, D-dimer PT 10.7 sec (10.0-12.5) 06/11/23 10:22 INR 1.0 (<1.2) 06/11/23 10:22 Abnormal lab findings: Abnormal Labs 06/11/23 06/11/23 06/11/23 10:21 10:22 10:22 RBC 3.27 L Hgb Hct MCV 112.1 H MCH 38.3 H Macrocytosis Marked A APTT Sodium 132 L Potassium Chloride 97 L Carbon Dioxide 18 L Anion Gap BUN Creatinine BUN/Creatinine Ratio Glucose 138 H POC Glucose (mg/dL) 160 H Plasma Lactic Acid Wallace Calcium Magnesium 1.3 L Total Bilirubin 1.6 H AST 59 H Alkaline Phosphatase Total Protein Albumin U Benzodiazepines Scrn 06/11/23 06/11/23 06/11/23 10:22 10:22 15:53 RBC Hgb Hct MCV MCH Macrocytosis APTT 20.3 L Sodium Potassium Chloride Carbon Dioxide Anion Gap BUN Creatinine BUN/Creatinine Ratio Glucose POC Glucose (mg/dL) Plasma Lactic Acid Wallace 7.6 H* Calcium Magnesium Total Bilirubin AST Alkaline Phosphatase Total Protein Albumin U Benzodiazepines Scrn Detected H 06/12/23 06/12/23 06/12/23 05:42 05:42 17:53 RBC 2.70 L Hgb 10.1 L Hct 29.7 L MCV 110.0 H MCH 37.4 H Macrocytosis APTT Sodium Potassium Chloride Carbon Dioxide Anion Gap 12.60 H BUN 4.7 L Creatinine BUN/Creatinine Ratio 7.83 L Glucose 68 L POC Glucose (mg/dL) 111 H Plasma Lactic Acid Wallace Calcium 7.8 L Magnesium Total Bilirubin AST 47 H Alkaline Phosphatase 31 L Total Protein 5.8 L Albumin 3.6 L U Benzodiazepines Scrn 06/12/23 06/12/23 06/12/23 19:25 20:33 20:33 RBC 2.91 L Hgb 11.3 L Hct 32.3 L MCV 110.8 H MCH 38.7 H Macrocytosis Marked A APTT Sodium 130 L Potassium 3.1 L Chloride Carbon Dioxide Anion Gap BUN 2 L Creatinine 0.47 L BUN/Creatinine Ratio Glucose POC Glucose (mg/dL) 122 H Plasma Lactic Acid Wallace Calcium Magnesium Total Bilirubin AST Alkaline Phosphatase Total Protein Albumin U Benzodiazepines Scrn - Diagnostic Findings Chest x-ray: image reviewed Assessment and Plan Assessment: Acute delirium, likely related to toxic metabolic encephalopathy and alcohol withdrawal delirium tremens. Suspected seizure, witnessed by EMS prior to arrival, no further seizure-like activity reported inpatient. EEG negative for epileptiform activity. Lactic acidosis, possibly related to seizure, improved Fall, with facial trauma, CT of the head and C-spine negative for any intracranial hemorrhage or C-spine fracture. Macrocytic anemia Suspect hypovolemic hyponatremia, secondary to poor oral intake Hypokalemia, being replaced History of alcoholism Plan: Patient's medications, labs, imaging reviewed Patient has been transferred to the intensive care unit, after she was found to be acutely delirious and combative on the general medical floor. She received a total of 17 mg of IV Ativan in the last 24 hours. CIWA was scored at 36 prior to transfer. She is currently on a Precedex infusion which we will continue, however, patient is currently quite sedated at this time. We will likely be able to wean Precedex as tolerated. Also continue CIWA protocol. No further seizure-like activity has been reported. Maintain seizure precautions Continue fall precautions Continue vitamin B1 replacement Check urinalysis Continue IV hydration Patient will be monitored in the intensive care unit for now. Will continue to follow. I have personally seen and examined the patient, performed the documentation and the assessment and plan as written. Number of minutes spent on the visit: 20 Time with Patient: Greater than 30
[2023-06-13 05:02] LABS: African American GFR (CKD) >90 (>60 ml/min/1.73 sqM); Anion Gap 7 mmol/L; Blood Urea Nitrogen 3 mg/dL (7-17); Calcium 8.4 mg/dL (8.4-10.2); Carbon Dioxide 23 mmol/L (22-30); Chloride 106 mmol/L (98-107); Glucose 105 mg/dL (74-99); Non-African American GFR(CKD) >90 (>60 ml/min/1.73 sqM); Potassium 3.9 mmol/L (3.5-5.1); Sodium 136 mmol/L (137-145)
[2023-06-13 05:46] LABS: Basophils % (A) 0 %; Eosinophils # (A) 0.1 k/uL (0-0.7); Eosinophils % (A) 2 %; HCT 34.6 % (34.0-46.0); HGB 11.6 gm/dL (11.4-16.0); Lymphocytes # (A) 1.1 k/uL (1.0-4.8); Lymphocytes % (A) 19 %; MCH 37.5 pg (25.0-35.0); MCHC 33.4 g/dL (31.0-37.0); MCV 112.3 fL (80.0-100.0); Macrocytosis Marked; Mean Platelet Volume 8.6; Monocytes # (A) 0.5 k/uL (0-1.0); Monocytes % (A) 8 %; Neutrophils # (A) 4.1 k/uL (1.3-7.7); Neutrophils % (A) 69 %; Platelet Count 177 k/uL (150-450); RBC 3.08 m/uL (3.80-5.40); RDW 13.2 % (11.5-15.5); WBC 5.9 k/uL (3.8-10.6)
[2023-06-13] MEDS ORDERED: POTASSIUM CHLORIDE ER 20 MEQ TAB.ER PO SCH (06:00)
[2023-06-13 06:06] LABS: Glucose,Whole Blood 94 mg/dL (70-110)
[2023-06-13] MEDS: PYRIDOXINE 50 MG TAB PO SCH (08:57)
[2023-06-13] MEDS: NICOTINE 21MG/24HR PATCH TRANSDERM SCH (08:57)
[2023-06-13] MEDS: chlordiazePOXIDE 25 MG CAP PO SCH ×3 (08:58→21:25)
[2023-06-13] MEDS: PANTOPRAZOLE 40 MG/10 ML VIAL IVP SCH (08:58)
[2023-06-13] MEDS: FOLIC ACID 1 MG TAB PO SCH (08:58)
[2023-06-13] MEDS: ENOXAPARIN 40 MG/0.4 ML SYRINGE SQ SCH (08:59)
[2023-06-13] MEDS ORDERED: TETRAHYDROZOLINE 0.05% OPHTH DROPS 15 ML BTL BOTH EYES PRN (09:06)
[2023-06-13] MEDS: MULTIVITAMINS, THERA 1 EACH TAB PO SCH (09:25)
[2023-06-13] MEDS: THIAMINE 100 MG TAB PO SCH (09:25)
--- NOTE | 2023-06-13 09:38 | P.CNNES ---
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 Patient's parents were also present, who provided the history. Patient drinks about 2 to 3 weeks size drinks of vodka per day for last several years. Patient did not drink on Sunday, as she went to a family (3 days prior to arrival). The following day, on Sunday she started having tremors, which got worse on Sunday. Yesterday, on Sunday morning, patient's mother called her primary physician nozzle cement sprayer helper, and made an appointment with her primary physician about the tremors for later during the day. Patient's mother heard a loud thump at around 9:30 AM. She called her daughter who did not answer. When she went in, she saw patient has fell out of bed, and as she probably fell, she hit her head all the way down the nightstand, and she was face down, having a seizure, that lasted for about 2 minutes. Patient did not bite her tongue, although she did lose control of urine. Patient's dad helped her situated, and mom called 911. As per EMS flowsheet, when they arrived, family mentioned that they found patient laying on the floor, unresponsive and having seizure-like activity. Patient possibly had a fall from bed to the floor. She was found with head pushed against the bedside table drawer. On evaluation by EMS, patient was alert and oriented x 2 with no focal deficits. Patient had raised contusion to the left side of her forehead and left temporal area. Patient is able to make complete sentences but is confused. Patient was having repetitive questioning. No previous history of seizure. Family states patient had major head trauma when she was younger. Seizure activity lasted maybe a couple minutes. She was incontinent of the urine. Patient denied any dyspnea, chest pain, nausea or any type of head or neck or back pain. Patient's vitals at the scene was blood pressure 172/105, pulse rate 119, respiration 20, saturation 99% and blood sugar 135. Blood test shows normal WBC, with elevated MCV 112.1. Platelets are normal. PT PTT normal, sodium 132, other electrolytes, renal functions are normal. AST mildly elevated 59 with normal ALT 31. Lactate 7.6. Troponin negative, urine hCG negative. Urine drug screen positive for benzodiazepine. Blood alcohol level negative. CT head showed stable atrophy. No acute intracranial process seen. I personally reviewed CT head, agree with the findings. CT of the cervical spine showed degenerative disc changes. Cervical kyphosis which could be related to spasm. Chest x-ray showed no acute cardiopulmonary process. Facial CT shows no fracture. EKG shows sinus tachycardia. Patient had a prior MRI of the lumbar spine on 05/02/2023, which revealed mild disc desiccation L5-S1 and L1-L2. Patient while in the hospital has been probably withdrawing from alcohol. She is sitting up, not aware, what is going on. She is hallucinating, seeing people, very confused. Patient's mother mentions that when she was 4 years old, she fell, and had a hairline fracture of the skull. Patient at present lives with her parents. She has no children. Patient drinks 2-3 big size drinks of vodka with water or a flavor every day. She has been drinking for the last 21 years, since her brother was killed, and she took hard on it. It got worse over time. She does not use any drugs. She smokes half pack per day for about 10 years. Patient follows with Dr. Bird for last 1 year, for numbness in the feet, that involves the bottom of the feet and the toes, that started in January 2022. In the last 3 to 4 months, it has become more of the pain in the feet, mainly involving the toes and the balls of the feet up to the front. Patient's mother states that she has history of similar tremors like this about a year ago, when she was diagnosed with "water intoxication". Review of Systems Constitutional: Reports sweats, Reports weight loss, Denies chills, Denies fever Eyes: denies blurred vision, denies diplopia, denies pain Ears: deny: decreased hearing, ear discharge Ears, nose, mouth and throat: Reports headache (Where hit head, typically does not get headache, only whether related headache with barometric changes.), Denies sore throat, Denies vertigo Cardiovascular: Reports lightheadedness (If stands up too fast.), Reports s hortness of breath (Sometimes), Denies chest pain Respiratory: Denies cough, Denies excessive sputum Gastrointestinal: Denies abdominal pain, Denies diarrhea, Denies nausea, Denies vomiting Genitourinary: Denies dysuria, Denies hematuria, Denies urinary frequency Integumentary: Denies pruritus, Denies rash Neurological: Reports as per HPI, Reports numbness, Reports paresthesias, Reports seizures, Reports tremors, Denies loss of vision, Denies vertigo Psychiatric: Reports anxiety, Denies depression Endocrine: Reports fatigue, Reports weight change Hematologic/Lymphatic: Denies easy bleeding, Denies easy bruising Past Medical History Past Medical History: No Reported History History of Any Multi-Drug Resistant Organisms: None Reported Past Surgical History: Adenoidectomy, Tonsillectomy Past Anesthesia/Blood Transfusion Reactions: Family History of Problems w/ Anesthesia Additional Past Anesthesia/Blood Transfusion Reaction / Comment(s): No history of blood transfusion. Past Psychological History: No Psychological Hx Reported, Anxiety Additional Psychological History / Comment(s): Brother 21 years ago in a MVA, Mother states this is when the drinking started. Mother stated that patient felt guilt. Smoking Status: Current every day smoker Past Alcohol Use History: Occasional Past Drug Use History: Marijuana Medications and Allergies Home Medications Medication Instructions Recorded Confirmed Type DULoxetine HCL [Cymbalta] 20 mg PO HS 06/11/23 06/11/23 History Fluocinolone/Shower Cap 1 applic TOPICAL DAILY PRN 06/11/23 06/11/23 History [Fluocinolone 0.01% Scalp Oil] Ketoconazole 2% Shampoo [Nizoral] 1 applic TOPICAL Q3D PRN 06/11/23 06/11/23 History l-Norgest/E.estradiol-E.estrad 1 tab PO DAILY@1445 06/11/23 06/11/23 History [Seasonique 0.15-0.03-0.01 (GEQ)] Allergies Allergy/AdvReac Type Severity Reaction Status Date / Time No Known Allergies Allergy Verified 06/11/23 13:52 Physical Examination - Vital Signs Vital Signs: Vital Signs Temp Pulse Pulse Resp BP BP Pulse Ox 06/12/23 12:53 97.6 F 116 H 20 170/96 100 06/12/23 07:38 98.2 F 98 18 165/86 98 06/12/23 00:57 97.3 F L 110 H 17 152/80 97 06/11/23 20:00 17 06/11/23 19:12 98.9 F 96 17 147/91 98 06/11/23 18:05 98.7 F 99 16 145/88 99 06/11/23 17:16 98 18 154/91 96 Intake and Output 06/12/23 06/12/23 06/12/23 06:59 14:59 22:59 Intake Total 120 Balance 120 Intake: Oral 120 Other: # Voids 1 Patient is a middle aged female, who is in no acute respiratory distress. Patient has bilateral black eye, from the trauma. Patient is alert awake, appears delirious, confused, hallucinating, trying to pick objects from the air, seeing people on the ceiling. Patient states it is June 14 and the year is . 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 She knows name of the current president Mr. Sung. Speech and language functions are normal. Patient can name and repeat very well. No aphasia or dysarthria. Attention, concentration is slightly impaired and fund of knowledge is limited due to delirium. On cranial nerve examination, pupils are equal, round and reacting to light, visual wiley are full on confrontation, with no neglect on double simultaneous stimulation. Extraocular muscles are intact, but patient has significant nystagmus, horizontal, and the primary gaze as well as in the end gaze. Patient was noticing double vision at times. Face is symmetric, tongue protrudes to the midline. Palatal elevation and sensation normal, hearing and shoulder shrug normal, facial sensation normal. No evidence of oral trauma. On muscle strength testing, there is no pronator drift and the strength is normal in arms and legs distally and proximally. Deep tendon reflexes are symmetric 1 at the biceps, 1 brachioradialis, 1 at the knees, plantars are flat bilaterally. Sensory to touch is equal with no neglect on double simultaneous stimulation. Cerebellar function showed mild to moderate, coarse tremors of outstretched hands. Patient has mild to moderate tremors for [id number] testing bilaterally, with no definitive ataxia. Patient has shaking for [id number] te sting bilaterally. Tone and bulk of muscles normal. Gait deferred.. On general examination, there is no carotid bruit or murmur, S1-S2 audible. Chest is clear on consultation. Abdomen is soft nontender. No organomegaly, bowel sounds present. Peripheral pulses are present. No peripheral edema. Results - Laboratory Findings CBC and BMP: 06/13/23 03:53 06/13/23 03:53 Abnormal Lab Findings: Abnormal Labs 06/11/23 06/11/23 06/11/23 10:21 10:22 10:22 RBC 3.27 L Hgb Hct MCV 112.1 H MCH 38.3 H Macrocytosis Marked A APTT Sodium 132 L Chloride 97 L Carbon Dioxide 18 L Anion Gap BUN BUN/Creatinine Ratio Glucose 138 H POC Glucose (mg/dL) 160 H Plasma Lactic Acid Wallace Calcium Magnesium 1.3 L Total Bilirubin 1.6 H AST 59 H Alkaline Phosphatase Total Protein Albumin U Benzodiazepines Scrn 06/11/23 06/11/23 06/11/23 10:22 10:22 15:53 RBC Hgb Hct MCV MCH Macrocytosis APTT 20.3 L Sodium Chloride Carbon Dioxide Anion Gap BUN BUN/Creatinine Ratio Glucose POC Glucose (mg/dL) Plasma Lactic Acid Wallace 7.6 H* Calcium Magnesium Total Bilirubin AST Alkaline Phosphatase Total Protein Albumin U Benzodiazepines Scrn Detected H 06/12/23 06/12/23 05:42 05:42 RBC 2.70 L Hgb 10.1 L Hct 29.7 L MCV 110.0 H MCH 37.4 H Macrocytosis APTT Sodium Chloride Carbon Dioxide Anion Gap 12.60 H BUN 4.7 L BUN/Creatinine Ratio 7.83 L Glucose 68 L POC Glucose (mg/dL) Plasma Lactic Acid Wallace Calcium 7.8 L Magnesium Total Bilirubin AST 47 H Alkaline Phosphatase 31 L Total Protein 5.8 L Albumin 3.6 L U Benzodiazepines Scrn Assessment and Plan Assessment: * Altered mental status, likely due to alcohol withdrawal/acute delirium tremens. * New onset seizure, likely due to alcohol withdrawal. * Longstanding history of alcoholism * Facial trauma, from fall due to seizure. CT head negative. * Macrocytosis, due to above * Tobacco use * Tremors, likely due to alcohol withdrawal. Plan: * Patient is in delirium tremens, with hallucination, nystagmus, encephalopathy. * Continue CIWA protocol. * EEG was performed, which was abnormal due to presence of excessive amount of low voltage fast frequency beta activity suggestive of medication effect. No epileptiform activity was seen. * No indication for antiepileptic medication, as the seizure is likely provoked from alcohol withdrawal. * Continue thiamine, folate, multivitamins. * Telemetry monitoring showing sinus rhythm, with heart rate between 1 20-1 30, likely due to above. * Fall risk. Seizure precautions. * Continue Cymbalta for anxiety/depression. * Neurology will follow. Thank you for the consult.
--- NOTE | 2023-06-13 10:21 | P.PN ---
Subjective Progress Note Date: 06/13/23 Hospital Course: Patient is a pleasant 43-year-old female with a past medical history of daily alcohol use/abuse, cannabis use, and nicotine dependence. She presented to the emergency department secondary to reports of falling out of bed hitting her head on the nightstand. Per ER documentation EMS reported witnessed seizure activity followed by a postictal state. Patient is unsure of why she fell out of bed, does not recall. States that she may have gotten up and tripped over her dog but does not remember actual fall. Fall was reportedly heard by patient's parents who then came to her assistance and called EMS. Patient does admit to daily alcohol use approximately 3 drinks daily with last drink reported on Sunday06/08/23. Upon arrival to our facility, patient underwent full evaluation. Labs upon arrival show blood pressure 164/114, heart rate 109, respiratory rate 18, temp 97.3F, SpO2 of 97% on room air. CT brain completed negative for acute intracranial process showing stable atrophy. CT cervical spine negative for acute osseous abnormality showing degenerative disc changes with cervical kyphosis. CT face completed negative for acute osseous abnormality showing mild soft tissue swelling over the left supraorbital region. EKG completed showing sinus tachycardia at 101 bpm with no noted T wave or ST abnormality showing no signs of acute ischemia. Labs completed and reviewed. CBC showing macrocytosis with MCV of 112.1. BMP revealing hyponatremia with sodium of 132, hyperchloremia with chloride of 97, hypocarbia with bicarb of 18, an elevated anion gap of 17. Blood glucose was 138. Initial lactate 7.6. Magnesium 1.3. Liver profile revealing Bilirubin elevated at 1.6 and AST elevated at 59. Troponin was 0.021. Serum alcohol less than 10. Patient admitted under our services with consultation to neurology. Due to worsening withdrawal symptoms despite getting multiple doses of IV Ativan, patient was transferred to medical ICU for further monitoring. She was started on Precedex drip. Patient seen and examined at bedside. No acute events overnight. Precedex has now turned off. Patient is doing better. Physical exam: Vital signs reviewed and stable. General: Nontoxic, no distress and appears stated age. Derm: Skin warm and dry, normal coloration for ethnicity. Head: Normocephalic and symmetric. Patient with periorbital ecchymosis bilater ally and hematoma to left forehead Eyes: EOMs intact, no lid lag, and anicteric sclera Mouth: mucus membranes moist. Mild swelling of upper lip. Cardiovascular: regular rate and rhythm with normal S1S2, no murmur, positive posterior tibial pulses bilaterally, and cap refill < 2 seconds. Lungs: Respirations even, regular, and unlabored on room air. Lungs CTA bilaterally, no rhonchi, no rales, no wheezing, and no accessory muscle usage. Abdominal: soft, nontender to palpation, no guarding, no appreciable organomegaly Ext: ROM intact. No gross muscle atrophy, no edema, no contractures Neuro: Speech clear, face symmetrical and CN II-XII grossly intact with no noted focal neuro deficits. No tremor Psych: Alert and oriented to person, place, time, and situation. Appropriate and pleasant affect. Assessment and Plan of Care: Patient currently being monitored in medical ICU, prognosis guarded. Severe alcohol withdrawal with delirium tremens Seizure, suspect alcohol withdrawal seizure Fall with head/facial trauma/injury Hypomagnesemia, resolved High anion gap metabolic acidosis, resolved Lactic acidosis, resolved Hypochloremic hyponatremia, resolving Hyperbilirubinemia, resolved -Continue to monitor in medical ICU -Currently off of Precedex drip -IV Ativan as needed per CIWA score On Librium 75 p.o. 3 times daily, taper starting tomorrow -Thiamine 100 mg daily, folic acid 1 mg daily -Neurology following, EEG did not show any epileptiform discharges -Pulmonology note reviewed, continue supportive care Continue normal saline at 75 cc an hour Hypoglycemia, resolved Nicotine dependence Cannabinoid use Recommend cessation of use. Nicotine patch 21 mg daily. Depression Continue duloxetine 40 nightly Data and imaging reviewed: WBC 5.8, hemoglobin 11.6, sodium 136, potassium 3.9, creatinine 0.51, glucose 105 CODE STATUS: Full code DVT prophylaxis: Lovenox Anticipated discharge date: Clinical course to determine Anticipated discharge place: Home Objective - Vital Signs Vital signs: Vital Signs Temp 97.9 F 06/13/23 08:00 Pulse 68 06/13/23 08:00 Resp 14 06/13/23 08:00 BP 144/94 06/13/23 08:00 Pulse Ox 98 06/13/23 08:00 FiO2 Intake & Output 06/12/23 06/13/23 06/13/23 18:59 06:59 18:59 Intake Total 238 1055.075 84.724 Output Total 0 Balance 238 1055.075 84.724 Intake: IV 965 75 0.9 565 75 Potassium Chloride 10 meq 400 In Water For Injection 1 100ml.bag @ 100 mls/hr IVPB Q1HR [facility] Rx#: [id number] Intake, IV Titration 90.075 9.724 Amount Dexmedetomidine/0.9% NaCl 90.075 9.724 (Pmx) 400 mcg In Empty Bag 1 bag @ 0.2 MCG/KG/HR 3.334 mls/hr IV .Q24H [facility] Rx#:[id number] Oral 238 Output: Urine 0 Other: Voiding Method External Catheter # Voids 0 - Labs CBC & Chem 7: 06/13/23 03:53 06/13/23 03:53 Labs: Abnormal Lab Results - Last 24 Hours (Table) 06/12/23 06/12/23 06/12/23 Range/Units 05:42 05:42 17:53 RBC 2.70 L (4.10-5.20) X 10*6/uL Hgb 10.1 L (12.0-15.0) g/dL Hct 29.7 L (37.2-46.3) % MCV 110.0 H (80.0-97.0) FL MCH 37.4 H (27.0-32.0) pg Macrocytosis Sodium (137-145) mmol/L Potassium (3.5-5.1) mmol/L Anion Gap 12.60 H (4.00-12.00) mmol/L BUN 4.7 L (9.0-27.0) mg/dL Creatinine (0.52-1.04) mg/dL BUN/Creatinine Ratio 7.83 L (12.00-20.00) Ratio Glucose 68 L (70-110) mg/dL POC Glucose (mg/dL) 111 H (70-110) mg/dL Calcium 7.8 L (8.7-10.3) mg/dL AST 47 H (13-35) U/L Alkaline Phosphatase 31 L (41-126) U/L Total Protein 5.8 L (6.2-8.2) g/dL Albumin 3.6 L (3.8-4.9) g/dL 06/12/23 06/12/23 06/12/23 Range/Units 19:25 20:33 20:33 RBC 2.91 L (4.10-5.20) X 10*6/uL Hgb 11.3 L (12.0-15.0) g/dL Hct 32.3 L (37.2-46.3) % MCV 110.8 H (80.0-97.0) FL MCH 38.7 H (27.0-32.0) pg Macrocytosis Marked A Sodium 130 L (137-145) mmol/L Potassium 3.1 L (3.5-5.1) mmol/L Anion Gap (4.00-12.00) mmol/L BUN 2 L (9.0-27.0) mg/dL Creatinine 0.47 L (0.52-1.04) mg/dL BUN/Creatinine Ratio (12.00-20.00) Ratio Glucose (70-110) mg/dL POC Glucose (mg/dL) 122 H (70-110) mg/dL Calcium (8.7-10.3) mg/dL AST (13-35) U/L Alkaline Phosphatase (41-126) U/L Total Protein (6.2-8.2) g/dL Albumin (3.8-4.9) g/dL 06/13/23 06/13/23 06/13/23 Range/Units 00:33 03:53 03:53 RBC 3.08 L (4.10-5.20) X 10*6/uL Hgb (12.0-15.0) g/dL Hct (37.2-46.3) % MCV 112.3 H (80.0-97.0) FL MCH 37.5 H (27.0-32.0) pg Macrocytosis Marked A Sodium 136 L (137-145) mmol/L Potassium (3.5-5.1) mmol/L Anion Gap (4.00-12.00) mmol/L BUN 3 L (9.0-27.0) mg/dL Creatinine 0.51 L (0.52-1.04) mg/dL BUN/Creatinine Ratio (12.00-20.00) Ratio Glucose 105 H (70-110) mg/dL POC Glucose (mg/dL) 131 H (70-110) mg/dL Calcium (8.7-10.3) mg/dL AST (13-35) U/L Alkaline Phosphatase (41-126) U/L Total Protein (6.2-8.2) g/dL Albumin (3.8-4.9) g/dL
[2023-06-13 11:20] LABS: Glucose,Whole Blood 70 mg/dL (70-110)
[2023-06-13 16:11] LABS: Glucose,Whole Blood 135 mg/dL (70-110)
[2023-06-13] MEDS: LORazepam 2 MG/ML INJ IV PRN ×3 (17:40→23:46)
[2023-06-13] MEDS: ACETAMINOPHEN TAB 325 MG TAB PO PRN (20:04)
[2023-06-13] MEDS: DULoxetine HCL 20 MG CAPSULE.DR PO SCH (20:04)
[2023-06-13 20:25] LABS: Glucose,Whole Blood 144 mg/dL (70-110)
[2023-06-14] MEDS: SODIUM CHLORIDE 0.9% 1,000 ML IV SCH (03:55)
[2023-06-14] MEDS: LORazepam 2 MG/ML INJ IV PRN ×2 (04:24→09:11)
[2023-06-14] MEDS: ACETAMINOPHEN TAB 325 MG TAB PO PRN (04:28)
[2023-06-14 04:54] LABS: Basophils % (A) 1 %; Eosinophils # (A) 0.1 k/uL (0-0.7); Eosinophils % (A) 1 %; HCT 33.1 % (34.0-46.0); HGB 11.2 gm/dL (11.4-16.0); Lymphocytes # (A) 1.6 k/uL (1.0-4.8); Lymphocytes % (A) 31 %; MCH 37.9 pg (25.0-35.0); MCHC 33.8 g/dL (31.0-37.0); MCV 112.2 fL (80.0-100.0); Macrocytosis Marked; Mean Platelet Volume 8.1; Monocytes # (A) 0.5 k/uL (0-1.0); Monocytes % (A) 9 %; Neutrophils # (A) 2.8 k/uL (1.3-7.7); Neutrophils % (A) 54 %; Platelet Count 243 k/uL (150-450); RBC 2.95 m/uL (3.80-5.40); RDW 13.2 % (11.5-15.5); WBC 5.1 k/uL (3.8-10.6)
[2023-06-14 05:13] LABS: African American GFR (CKD) >90 (>60 ml/min/1.73 sqM); Anion Gap 9 mmol/L; Blood Urea Nitrogen 5 mg/dL (7-17); Calcium 8.5 mg/dL (8.4-10.2); Carbon Dioxide 19 mmol/L (22-30); Chloride 104 mmol/L (98-107); Glucose 106 mg/dL (74-99); Non-African American GFR(CKD) >90 (>60 ml/min/1.73 sqM); Potassium 3.5 mmol/L (3.5-5.1); Sodium 132 mmol/L (137-145)
[2023-06-14] MEDS: POTASSIUM CHLORIDE ER 20 MEQ TAB.ER PO SCH ×2 (05:24→06:21)
[2023-06-14] MEDS ORDERED: INFLUENZA VACC (6 MOS-64 YRS) 60 MCG/0.5 ML SYRINGE IM ONE (09:00)
[2023-06-14] MEDS: PANTOPRAZOLE 40 MG/10 ML VIAL IVP SCH (09:10)
[2023-06-14] MEDS: PYRIDOXINE 50 MG TAB PO SCH (09:10)
[2023-06-14] MEDS: THIAMINE 100 MG TAB PO SCH (09:10)
[2023-06-14] MEDS: chlordiazePOXIDE 25 MG CAP PO SCH ×3 (09:10→21:48)
[2023-06-14] MEDS: MULTIVITAMINS, THERA 1 EACH TAB PO SCH (09:10)
[2023-06-14] MEDS: NICOTINE 21MG/24HR PATCH TRANSDERM SCH (09:10)
[2023-06-14] MEDS: FOLIC ACID 1 MG TAB PO SCH (09:10)
[2023-06-14] MEDS: ENOXAPARIN 40 MG/0.4 ML SYRINGE SQ SCH (09:11)
--- NOTE | 2023-06-14 09:33 | P.PN ---
Subjective Progress Note Date: 06/13/23 Patient was seen for a follow-up. Since last seen, patient was transferred to ICU for delirium tremens. Patient is doing much better. According to the nurse report, patient is slightly anxious. She has mild hallucination, spotting some bugs around. Since morning she has only received 1 dose of Ativan. Precedex has been discontinued. She is doing much better. Objective - Vital Signs Vital signs: Vital Signs Temp 98.4 F 06/13/23 16:00 Pulse 133 H 06/13/23 18:00 Resp 18 06/13/23 18:00 BP 155/100 06/13/23 18:00 Pulse Ox 96 06/13/23 18:00 FiO2 Intake & Output 06/12/23 06/13/23 06/13/23 18:59 06:59 18:59 Intake Total 238 1055.075 984.724 Output Total 0 Balance 238 1055.075 984.724 Intake: IV 965 75 0.9 565 75 Potassium Chloride 10 meq 400 In Water For Injection 1 100ml.bag @ 100 mls/hr IVPB Q1HR [facility] Rx#: [id number] Intake, IV Titration 90.075 9.724 Amount Dexmedetomidine/0.9% NaCl 90.075 9.724 (Pmx) 400 mcg In Empty Bag 1 bag @ 0.2 MCG/KG/HR 3.334 mls/hr IV .Q24H [facility] Rx#:[id number] Oral 238 900 Output: Urine 0 Other: Voiding Method External Catheter Toilet # Voids 0 1 # Bowel Movements 1 - Exam Patient is alert and awake in no distress. Speech and language functions are normal. She does not appear as anxious, as delirious as yesterday. Much improved. Her tremors of outstretched hands has much improved. The nystagmus has mostly resolved. Pupils are equal, round and reacting, visual wiley are full, face is symmetric. Muscle strength appears normal. Sensations are equal. Her tremors for [id number] testing has remarkably improved, still present mildly in the left arm more than right. - Labs CBC & Chem 7: 06/14/23 04:04 06/14/23 07:20 Labs: Abnormal Lab Results - Last 24 Hours (Table) 06/12/23 06/12/23 06/12/23 Range/Units 19:25 20:33 20:33 RBC 2.91 L (3.80-5.40) m/uL Hgb 11.3 L (11.4-16.0) gm/dL Hct 32.3 L (34.0-46.0) % MCV 110.8 H (80.0-100.0) fL MCH 38.7 H (25.0-35.0) pg Macrocytosis Marked A Sodium 130 L (137-145) mmol/L Potassium 3.1 L (3.5-5.1) mmol/L BUN 2 L (7-17) mg/dL Creatinine 0.47 L (0.52-1.04) mg/dL Glucose (74-99) mg/dL POC Glucose (mg/dL) 122 H (70-110) mg/dL 06/13/23 06/13/23 06/13/23 Range/Units 00:33 03:53 03:53 RBC 3.08 L (3.80-5.40) m/uL Hgb (11.4-16.0) gm/dL Hct (34.0-46.0) % MCV 112.3 H (80.0-100.0) fL MCH 37.5 H (25.0-35.0) pg Macrocytosis Marked A Sodium 136 L (137-145) mmol/L Potassium (3.5-5.1) mmol/L BUN 3 L (7-17) mg/dL Creatinine 0.51 L (0.52-1.04) mg/dL Glucose 105 H (74-99) mg/dL POC Glucose (mg/dL) 131 H (70-110) mg/dL 06/13/23 Range/Units 16:10 RBC (3.80-5.40) m/uL Hgb (11.4-16.0) gm/dL Hct (34.0-46.0) % MCV (80.0-100.0) fL MCH (25.0-35.0) pg Macrocytosis Sodium (137-145) mmol/L Potassium (3.5-5.1) mmol/L BUN (7-17) mg/dL Creatinine (0.52-1.04) mg/dL Glucose (74-99) mg/dL POC Glucose (mg/dL) 135 H (70-110) mg/dL Assessment and Plan Assessment: * Altered mental status, likely due to alcohol withdrawal and acute delirium tremens, much improved today. * New onset seizure, likely due to alcohol withdrawal. * Longstanding history of alcoholism * Facial trauma, from fall due to seizure. CT head negative. * Macrocytosis, due to above * Tobacco use * Tremors, likely due to alcohol withdrawal. * Hypomagnesemia, resolved * Lactic acidosis, resolved Plan: * Patient's delirium tremens have much improved. She still has mild halluci nations, but improving. * Continue CIWA protocol. * EEG was abnormal due to presence of excessive amount of low voltage fast frequency beta activity suggestive of medication effect. No epileptiform act ivity was seen. * No indication for antiepileptic medication, as the seizure is likely provoked from alcohol withdrawal. * Continue thiamine, folate, multivitamins. * Fall risk. Seizure precautions. * Continue Cymbalta for anxiety/depression. * Patient was informed of [place] state law of no driving unless seizure free for 6 months, climbing ladders, operating dangerous machinery or unsupervised swimming. * Neurologically clear, once DTs have resolved.
[2023-06-14] MEDS ORDERED: POTASSIUM CHLORIDE ER 20 MEQ TAB.ER PO SCH (12:00)
--- NOTE | 2023-06-14 12:18 | P.PN ---
Subjective Progress Note Date: 06/14/23 Hospital Course: Patient is a pleasant 43-year-old female with a past medical history of daily alcohol use/abuse, cannabis use, and nicotine dependence. She presented to the emergency department secondary to reports of falling out of bed hitting her head on the nightstand. Per ER documentation EMS reported witnessed seizure activity followed by a postictal state. Patient is unsure of why she fell out of bed, does not recall. States that she may have gotten up and tripped over her dog but does not remember actual fall. Fall was reportedly heard by patient's parents who then came to her assistance and called EMS. Patient does admit to daily alcohol use approximately 3 drinks daily with last drink reported on Sunday06/08/23. Upon arrival to our facility, patient underwent full evaluation. Labs upon arrival show blood pressure 164/114, heart rate 109, respiratory rate 18, temp 97.3F, SpO2 of 97% on room air. CT brain completed negative for acute intracranial process showing stable atrophy. CT cervical spine negative for acute osseous abnormality showing degenerative disc changes with cervical kyphosis. CT face completed negative for acute osseous abnormality showing mild soft tissue swelling over the left supraorbital region. EKG completed showing sinus tachycardia at 101 bpm with no noted T wave or ST abnormality showing no signs of acute ischemia. Labs completed and reviewed. CBC showing macrocytosis with MCV of 112.1. BMP revealing hyponatremia with sodium of 132, hyperchloremia with chloride of 97, hypocarbia with bicarb of 18, an elevated anion gap of 17. Blood glucose was 138. Initial lactate 7.6. Magnesium 1.3. Liver profile revealing Bilirubin elevated at 1.6 and AST elevated at 59. Troponin was 0.021. Serum alcohol less than 10. Patient admitted under our services with consultation to neurology. Due to worsening withdrawal symptoms despite getting multiple doses of IV Ativan, patient was transferred to medical ICU for further monitoring. She was started on Precedex drip. Now stable. Off of Precedex drip. Patient seen and examined at bedside. No acute events overnight. Patient is doing better. Physical exam: Vital signs reviewed and stable. General: Nontoxic, no distress and appears stated age. Derm: Skin warm and dry, normal coloration for ethnicity. Head: Normocephalic and symmetric. Patient with periorbital ecchymosis b ilaterally and hematoma to left forehead Eyes: EOMs intact, no lid lag, and anicteric sclera Mouth: mucus membranes moist. Mild swelling of upper lip. Cardiovascular: regular rate and rhythm with normal S1S2, no murmur, positive posterior tibial pulses bilaterally, and cap refill < 2 seconds. Lungs: Respirations even, regular, and unlabored on room air. Lungs CTA bilaterally, no rhonchi, no rales, no wheezing, and no accessory muscle usage. Abdominal: soft, nontender to palpation, no guarding, no appreciable organomegaly Ext: ROM intact. No gross muscle atrophy, no edema, no contractures Neuro: Speech clear, face symmetrical and CN II-XII grossly intact with no noted focal neuro deficits. No tremor Psych: Alert and oriented to person, place, time, and situation. Appropriate and pleasant affect. Assessment and Plan of Care: Severe alcohol withdrawal with delirium tremens Seizure, suspect alcohol withdrawal seizure Fall with head/facial trauma/injury Hypomagnesemia, resolved High anion gap metabolic acidosis, resolved Lactic acidosis, resolved Hypochloremic hyponatremia, resolving Hyperbilirubinemia, resolved -Patient to be transition to [facility] floor -IV Ativan as needed per CIWA score Librium further decreased to 25 p.o. 3 times daily -Thiamine 100 mg daily, folic acid 1 mg daily -Neurology following, EEG did not show any epileptiform discharges, no need for any antiepileptics -Pulmonology following Hypoglycemia, resolved Nicotine dependence Cannabinoid use Recommend cessation of use. Nicotine patch 21 mg daily. Depression Continue duloxetine 40 nightly Data and imaging reviewed: WBC 5.1, hemoglobin 11.2, sodium 132 CODE STATUS: Full code DVT prophylaxis: Lovenox Anticipated discharge date: Clinical course to determine Anticipated discharge place: Home Objective - Vital Signs Vital signs: Vital Signs Temp 98.2 F 06/14/23 08:00 Pulse 94 06/14/23 11:00 Resp 23 06/14/23 11:00 BP 137/97 06/14/23 11:00 Pulse Ox 97 06/14/23 11:00 FiO2 Intake & Output 06/13/23 06/14/23 06/14/23 18:59 06:59 18:59 Intake Total 1524.724 720 0 Output Total 0 0 0 Balance 1524.724 720 0 Weight 67.9 kg Intake: IV 75 0.9 75 Intake, IV Titration 9.724 0 Amount Dexmedetomidine/0.9% NaCl 9.724 (Pmx) 400 mcg In Empty Bag 1 bag @ 0.2 MCG/KG/HR 3.334 mls/hr IV .Q24H [facility] Rx#:[id number] Sodium Chloride 0.9% 1, 0 000 ml @ 75 mls/hr IV . [id number] [facility] Rx#:[id number] Oral 1440 720 Output: Urine 0 0 0 Other: Voiding Method Toilet Toilet Toilet # Voids 1 1 3 # Bowel Movements 1 1 - Labs CBC & Chem 7: 06/14/23 04:04 06/14/23 07:20 Labs: Abnormal Lab Results - Last 24 Hours (Table) 06/13/23 06/13/23 06/14/23 Range/Units 16:10 20:23 04:04 RBC 2.95 L (3.80-5.40) m/uL Hgb 11.2 L (11.4-16.0) gm/dL Hct 33.1 L (34.0-46.0) % MCV 112.2 H (80.0-100.0) fL MCH 37.9 H (25.0-35.0) pg Macrocytosis Marked A Sodium (137-145) mmol/L Carbon Dioxide (22-30) mmol/L BUN (7-17) mg/dL Glucose (74-99) mg/dL POC Glucose (mg/dL) 135 H 144 H (70-110) mg/dL 06/14/23 Range/Units 04:04 RBC (3.80-5.40) m/uL Hgb (11.4-16.0) gm/dL Hct (34.0-46.0) % MCV (80.0-100.0) fL MCH (25.0-35.0) pg Macrocytosis Sodium 132 L (137-145) mmol/L Carbon Dioxide 19 L (22-30) mmol/L BUN 5 L (7-17) mg/dL Glucose 106 H (74-99) mg/dL POC Glucose (mg/dL) (70-110) mg/dL
--- NOTE | 2023-06-14 14:21 | P.PN ---
Subjective Progress Note Date: 06/14/23 Principal diagnosis: Acute delirium and toxic metabolic encephalopathy with alcohol withdrawal I am seeing this patient in new consultation today June 13, 2023 in the intensive care unit after she was transferred from the general medical floor late last night. She was reportedly confused and combative. Patient was originally admitted back on June 11 for fall and possible alcohol withdrawal seizure. Patient has past medical history significant for alcoholism. Last drink was reportedly the day prior to admission. As stated above, the patient had a fall prior to coming in. She has bilateral periorbital ecchymosis. CT of the head and C-spine negative for any intracranial hemorrhage or C-spine fracture. The EMS reported that on their arrival, the patient had generalized seizure-like activity. No reported history of seizures. EEG did not show any epileptiform activity. She was originally admitted to the general medical floor. Late last night, the patient became severely delirious and combative. She required transfer to the intensive care unit, where she was started on a Precedex infusion. She also received multiple doses of Ativan. I believe she has received a total of 17 mg of IV Ativan in the last 24 hours. She did temporarily require soft restraints, which are now discontinued. Patient is currently sleeping in bed, on room air, in no acute distress. There is a safety manager at bedside. The bedside nurse tells me that the patient was having auditory and visual hallucinations earlier. Reportedly, seeing bugs crawling on the TV. CIWA was scored at 36 prior to transfer. Precedex is infusing at 1 mcg/kg/h. CBC from yesterday was fairly unremarkable including a WBC count of 7.5, hemoglobin 11.3, hematocrit 32.3, platelets 194. BMP has a sodium 130, potassium 3.1, chloride 98, serum bicarb 23, BUN 2, creatinine 0.47, and glucose of 97. Urine toxicology screen was negative for everything except benzodiazepines, which she was receiving here. Serum alcohol level less than 10. Urine test negative. ECG consistent with sinus tachycardia. Vital signs are stable. Patient was reevaluated today on 06/14/2023, patient is doing well, relatively asymptomatic, she is on room air, not in any distress, not requiring any Precedex anymore. CBC is normal basic metabolic profile is normal renal profile is normal her alcohol withdrawal seems to be controlled following the CIWA protocol, and no Precedex is felt to be necessary. Hence I will transfer the patient out of the ICU to regular medical floor today Objective - Vital Signs Vital signs: Vital Signs Temp 98 F 06/14/23 14:00 Pulse 97 06/14/23 14:00 Resp 12 06/14/23 14:00 BP 123/82 06/14/23 14:00 Pulse Ox 98 06/14/23 14:00 FiO2 Intake & Output 06/13/23 06/14/23 06/14/23 18:59 06:59 18:59 Intake Total 1524.724 720 0 Output Total 0 0 0 Balance 1524.724 720 0 Weight 67.9 kg Intake: IV 75 0.9 75 Intake, IV Titration 9.724 0 Amount Dexmedetomidine/0.9% NaCl 9.724 (Pmx) 400 mcg In Empty Bag 1 bag @ 0.2 MCG/KG/HR 3.334 mls/hr IV .Q24H [facility] Rx#:[id number] Sodium Chloride 0.9% 1, 0 000 ml @ 75 mls/hr IV . [id number] [facility] Rx#:[id number] Oral 1440 720 Output: Urine 0 0 0 Other: Voiding Method Toilet Toilet Toilet # Voids 1 1 3 # Bowel Movements 1 1 - Exam General: The patient is awake and alert, in no distress, and does not appear acutely ill. Skin: Skin is warm and dry and no rashes or lesions are noted. Eye: Pupils are equal, round and reactive to light, extra-ocular movements are intact; there is normal conjunctiva bilaterally. Ears, nose, mouth and throat: There are moist mucous membranes and no oral lesions. Neck: The neck is supple, there is no tenderness or JVD. Cardiovascular: There is a regular rate and rhythm. No murmur, rub or gallop is appreciated. Respiratory: Clear bilaterally no crackles rhonchi or wheezes Gastrointestinal: Soft, non-distended, non-tender abdomen without masses or organomegaly noted. There is no rebound or guarding present. Bowel sounds are unremarkable. Back: There is no tenderness to palpation in the midline. There is no obvious deformity. Musculoskeletal: Normal ROM, no tenderness, There is no pedal edema. There is no calf tenderness or swelling. No cords were appreciated. Neurological: CN II-XII intact, Cranial nerves III through XII are intact. There are no obvious motor or sensory deficits. Coordination appears grossly intact. Speech is normal. Psychiatric: Cooperative, appropriate mood & affect, normal judgment. - Labs CBC & Chem 7: 06/14/23 04:04 06/14/23 07:20 Labs: Abnormal Lab Results - Last 24 Hours (Table) 06/13/23 06/13/23 06/14/23 Range/Units 16:10 20:23 04:04 RBC 2.95 L (3.80-5.40) m/uL Hgb 11.2 L (11.4-16.0) gm/dL Hct 33.1 L (34.0-46.0) % MCV 112.2 H (80.0-100.0) fL MCH 37.9 H (25.0-35.0) pg Macrocytosis Marked A Sodium (137-145) mmol/L Carbon Dioxide (22-30) mmol/L BUN (7-17) mg/dL Glucose (74-99) mg/dL POC Glucose (mg/dL) 135 H 144 H (70-110) mg/dL 06/14/23 Range/Units 04:04 RBC (3.80-5.40) m/uL Hgb (11.4-16.0) gm/dL Hct (34.0-46.0) % MCV (80.0-100.0) fL MCH (25.0-35.0) pg Macrocytosis Sodium 132 L (137-145) mmol/L Carbon Dioxide 19 L (22-30) mmol/L BUN 5 L (7-17) mg/dL Glucose 106 H (74-99) mg/dL POC Glucose (mg/dL) (70-110) mg/dL Assessment and Plan Assessment: Impression: Acute alcohol withdrawal Acute delirium tremens Acute metabolic encephalopathy Facial trauma but no significant findings on CT of the head and cervical spine History of seizure disorder related to alcohol withdrawal Hypovolemic hyponatremia Hypokalemia History of alcoholism Recommendation: Continue present supportive care measures Continue fall precautions Continue alcohol withdrawal protocol/CIWA protocol Continue IV hydration Will recommend transfer out of the ICU to the medical surgical floor. Time with Patient: Less than 30
[2023-06-14] MEDS: DEXMEDETOMIDINE/0.9% NACL(PMX) 400 MCG in EMPTY BAG 1 BAG IV SCH (19:42)
[2023-06-14] MEDS: DULoxetine HCL 20 MG CAPSULE.DR PO SCH (21:48)
[2023-06-15 08:13] VITALS: BP 149/96; PULSE 81; RESP 16; TEMP 98.9
[2023-06-15] MEDS ORDERED: PANTOPRAZOLE 40 MG TABLET PO SCH (09:00)
[2023-06-15] MEDS: ENOXAPARIN 40 MG/0.4 ML SYRINGE SQ SCH (09:25)
[2023-06-15] MEDS: THIAMINE 100 MG TAB PO SCH (09:26)
[2023-06-15] MEDS: FOLIC ACID 1 MG TAB PO SCH (09:26)
[2023-06-15] MEDS: MULTIVITAMINS, THERA 1 EACH TAB PO SCH (09:26)
[2023-06-15] MEDS: NICOTINE 21MG/24HR PATCH TRANSDERM SCH (09:26)
[2023-06-15] MEDS: PYRIDOXINE 50 MG TAB PO SCH (09:26)
[2023-06-15] MEDS: chlordiazePOXIDE 25 MG CAP PO SCH (09:30)
--- NOTE | 2023-06-15 10:09 | P.PN ---
Subjective Progress Note Date: 06/14/23 Patient was seen for a follow-up. Patient is laying in the bed, appears comfortable. Patient states that she is still having some hallucinations, seeing "like little bugs" on the blanket, however she is not seeing any people. Patient understands this is hallucinations, and tries to brush it off. Her t remors have improved. Objective - Vital Signs Vital signs: Vital Signs Temp 98.9 F 06/15/23 06:54 Pulse 81 06/15/23 06:54 Resp 16 06/15/23 06:54 BP 149/96 06/15/23 06:54 Pulse Ox 99 06/15/23 06:54 FiO2 Intake & Output 06/14/23 06/15/23 06/15/23 18:59 06:59 18:59 Intake Total 700 120 Output Total 0 Balance 700 120 Intake: Intake, IV Titration 0 Amount Sodium Chloride 0.9% 1, 0 000 ml @ 75 mls/hr IV . [id number] [facility] Rx#:[id number] Oral 700 120 Output: Urine 0 Other: Voiding Method Toilet Toilet # Voids 3 1 # Bowel Movements 1 - Exam Patient is alert and awake in no distress. Speech and language functions are normal. Affect appears much better. She has bilateral black eye and lower facial bruise. Her tremors of outstretched hands has almost resolved. The nystagmus has resolved. Pupils, left appears slightly larger than the right, both reactive to light. Her visual wiley are full, face is symmetric. Muscle strength appears normal. Sensations are equal. Her tremors for [id number] testing has remarkably improved, still present minimally in the left arm. - Labs CBC & Chem 7: 06/14/23 04:04 06/14/23 07:20 Assessment and Plan Assessment: * Altered mental status, likely due to alcohol withdrawal and acute delirium tremens, much improved today. * New onset seizure, likely due to alcohol withdrawal. * Longstanding history of alcoholism * Facial trauma, from fall due to seizure. CT head negative. * Macrocytosis, due to above * Tobacco use * Vitamin B6 deficiency * Tremors, likely due to alcohol withdrawal. * Hypomagnesemia, resolved * Lactic acidosis, resolved Plan: * Patient's delirium tremens have much improved. She still has mild dockery ucinations, but improving. * Continue CIWA protocol. * EEG was abnormal due to presence of excessive amount of low voltage fast frequency beta activity suggestive of medication effect. No epileptiform activity was seen. * No indication for antiepileptic medication, as the seizure is likely provoked from alcohol withdrawal. * Continue thiamine, folate, multivitamins. * Fall risk. Seizure precautions. * Continue Cymbalta for anxiety/depression. * Patient's B12 461, folate > 20 on 12/20/2022. B6 was borderline 9 (5-50) patient started on vitamin B6 50 mg daily. * Patient was informed of [place] state law of no driving unless seizure free for 6 months, climbing ladders, operating dangerous machinery or unsupervised swimming. * Neurologically clear, once DTs have resolved.
[2023-06-15 11:30] LABS: BUN/Creat Ratio 7.86 Ratio (12.00-20.00); Blood Urea Nitrogen 5.5 mg/dL (9.0-27.0); Calcium 8.7 mg/dL (8.7-10.3); Chloride 101 mmol/L (96-109); Glucose 80 mg/dL (70-110); Potassium 4.3 mmol/L (3.5-5.5); Sodium 134 mmol/L (135-145)
--- NOTE | 2023-06-15 12:13 | P.DS ---
Providers Date of admission: 06/11/23 14:28 Expected date of discharge: 06/15/23 Attending physician: Andreas Gonzalez MD Consults: 06/11/23 15:40 Consult Physician Routine Consulting Provider: Maddy Whitley Consult Reason/Comments: seizure, poss withdraw siezure vs seizure r/t head injury from fall Do you want consulting provider notified?: Yes 06/12/23 19:39 Consult Physician Stat Consulting Provider: Natividad Jiang Consult Reason/Comments: ICU mangement Do you want consulting provider notified?: Already Contacted Primary care physician: Emiliano Zhou Hospital Course: Discharge Diagnosis: Severe alcohol withdrawal with delirium tremens Alcohol withdrawal seizure Fall with head/facial trauma/injury Hypomagnesemia High anion gap metabolic acidosis Lactic acidosis Hypochloremic hyponatremia Hyperbilirubinemia Hypoglycemia Nicotine dependence Cannabinoid use Depression Hospital Course: Patient is a pleasant 43-year-old female with a past medical history of daily alcohol use/abuse, cannabis use, and nicotine dependence. She presented to the emergency department secondary to reports of falling out of bed hitting her head on the nightstand. Per ER documentation EMS reported witnessed seizure activity followed by a postictal state. Patient is unsure of why she fell out of bed, does not recall. States that she may have gotten up and tripped over her dog but does not remember actual fall. Fall was reportedly heard by patient's parents who then came to her assistance and called EMS. Patient does admit to daily alcohol use approximately 3 drinks daily with last drink reported on Sunday06/08/23. Upon arrival to our facility, patient underwent full evaluation. Labs upon arrival show blood pressure 164/114, heart rate 109, respiratory rate 18, temp 97.3F, SpO2 of 97% on room air. CT brain completed negative for acute intracranial process showing stable atrophy. CT cervical spine negative for acute osseous abnormality showing degenerative disc changes with cervical kyphosis. CT face completed negative for acute osseous abnormality showing mild soft tissue swelling over the left supraorbital region. EKG completed showing sinus tachycardia at 101 bpm with no noted T wave or ST abnormality showing no signs of acute ischemia. Labs completed and reviewed. CBC showing macrocytosis with MCV of 112.1. BMP revealing hyponatremia with sodium of 132, hyperchloremia with chloride of 97, hypocarbia with bicarb of 18, an elevated anion gap of 17. Blood glucose was 138. Initial lactate 7.6. Magnesium 1.3. Liver profile revealing Bilirubin elevated at 1.6 and AST elevated at 59. Troponin was 0.021. Serum alcohol less than 10. Patient admitted under our services with consultation to neurology. Due to worsening withdrawal symptoms despite getting multiple doses of IV Ativan, patient was transferred to medical ICU for further monitoring. She was started on Precedex drip. Now stable. Off of Precedex drip. She is now back to baseline. Being discharged home. Recommended outpatient alcohol rehab and counseling. Patient seen and examined at bedside. Vital signs reviewed and stable. General: Nontoxic, no distress and appears stated age. Derm: Skin warm and dry, normal coloration for ethnicity. Head: Normocephalic and symmetric. Patient with periorbital ecchymosis bilaterally and hematoma to left forehead Eyes: EOMs intact, no lid lag, and anicteric sclera Mouth: mucus membranes moist. Mild swelling of upper lip. Cardiovascular: regular rate and rhythm with normal S1S2, no murmur, positive posterior tibial pulses bilaterally, and cap refill < 2 seconds. Lungs: Respirations even, regular, and unlabored on room air. Lungs CTA bilaterally, no rhonchi, no rales, no wheezing, and no accessory muscle usage. Abdominal: soft, nontender to palpation, no guarding, no appreciable organomegaly Ext: ROM intact. No gross muscle atrophy, no edema, no contractures Neuro: Speech clear, face symmetrical and CN II-XII grossly intact with no noted focal neuro deficits. No tremor Psych: Alert and oriented to person, place, time, and situation. Appropriate and pleasant affect. A total of 33 minutes of time were spent preparing this complex discharge summary. Patient was discharged on 06/15/23 at 1055. Patient Condition at Discharge: Stable Plan - Discharge Summary Discharge Rx Participant: No New Discharge Prescriptions: New Folic Acid 1 mg PO DAILY #60 tab Multivitamins, Thera [Multivitamin (formulary)] 1 each PO DAILY #60 tab Thiamine [Vitamin B-1] 100 mg PO DAILY #60 tab Pyridoxine [Vitamin B-6] 50 mg PO DAILY #60 tab Continue Ketoconazole 2% Shampoo [Nizoral] 1 applic TOPICAL Q3D PRN PRN Reason: Itching Fluocinolone/Shower Cap [Fluocinolone 0.01% Scalp Oil] 1 applic TOPICAL DAILY PRN PRN Reason: Itching DULoxetine HCL [Cymbalta] 20 mg PO HS l-Norgest/E.estradiol-E.estrad [Seasonique 0.15-0.03-0.01 (GEQ)] 1 tab PO DAILY@1445 Discharge Medication List DULoxetine HCL [Cymbalta] 20 mg PO HS 06/11/23 [History] Fluocinolone/Shower Cap [Fluocinolone 0.01% Scalp Oil] 1 applic TOPICAL DAILY PRN 06/11/23 [History] Ketoconazole 2% Shampoo [Nizoral] 1 applic TOPICAL Q3D PRN 06/11/23 [History] l-Norgest/E.estradiol-E.estrad [Seasonique 0.15-0.03-0.01 (GEQ)] 1 tab PO DAILY@1445 06/11/23 [History] Folic Acid 1 mg PO DAILY #60 tab 06/15/23 [Rx] Multivitamins, Thera [Multivitamin (formulary)] 1 each PO DAILY #60 tab 06/15/23 [Rx] Pyridoxine [Vitamin B-6] 50 mg PO DAILY #60 tab 06/15/23 [Rx] Thiamine [Vitamin B-1] 100 mg PO DAILY #60 tab 06/15/23 [Rx] Follow up Appointment(s)/Referral(s): Emiliano Zhou MD [Primary Care Provider] - 06/19/23 1:30 pm (appointment with [facility]) Patient Instructions/Handouts: Alcohol Withdrawal (DC), Alcohol Dependence (DC) Activity/Diet/Wound Care/Special Instructions: Please see your PCP. Discharge/Stand Alone Forms: AA Meetings [facility], Who Do I Call?, Community Resources, Outpatient Counseling, Inp Substance Abuse Facilities Discharge Disposition: HOME SELF-CARE
--- NOTE | 2023-06-15 13:17 | P.PN ---
Subjective Progress Note Date: 06/15/23 I am seeing this patient in new consultation today June 13, 2023 in the intensive care unit after she was transferred from the general medical floor late last night. She was reportedly confused and combative. Patient was originally admitted back on June 11 for fall and possible alcohol withdrawa l seizure. Patient has past medical history significant for alcoholism. Last drink was reportedly the day prior to admission. As stated above, the patient had a fall prior to coming in. She has bilateral periorbital ecchymosis. CT of the head and C-spine negative for any intracranial hemorrhage or C-spine fracture. The EMS reported that on their arrival, the patient had generalized seizure-like activity. No reported history of seizures. EEG did not show any epileptiform activity. She was originally admitted to the general medical floor. Late last night, the patient became severely delirious and combative. She required transfer to the intensive care unit, where she was started on a Precedex infusion. She also received multiple doses of Ativan. I believe she has received a total of 17 mg of IV Ativan in the last 24 hours. She did temporarily require soft restraints, which are now discontinued. Patient is currently sleeping in bed, on room air, in no acute distress. There is a mine safety engineer at bedside. The bedside nurse tells me that the patient was having auditory and visual hallucinations earlier. Reportedly, seeing bugs crawling on the TV. CIWA was scored at 36 prior to transfer. Precedex is infusing at 1 mcg/kg/h. CBC from yesterday was fairly unremarkable including a WBC count of 7.5, hemoglobin 11.3, hematocrit 32.3, platelets 194. BMP has a sodium 130, p otassium 3.1, chloride 98, serum bicarb 23, BUN 2, creatinine 0.47, and glucose of 97. Urine toxicology screen was negative for everything except benzodiazepines, which she was receiving here. Serum alcohol level less than 10. Urine test negative. ECG consistent with sinus tachycardia. Vital signs are stable. Patient was reevaluated today on 06/14/2023, patient is doing well, relatively asymptomatic, she is on room air, not in any distress, not requiring any Precedex anymore. CBC is normal basic metabolic profile is normal renal profile is normal her alcohol withdrawal seems to be controlled following the CIWA protocol, and no Precedex is felt to be necessary. Hence I will transfer the patient out of the ICU to regular medical floor today The patient is seen today June 15, 2023 and follow-up on the regular medical floor. She is currently sitting up in bed. Awake and alert in no acute distress. She denies any worsening shortness of breath, cough or congestion. S he is maintaining good O2 saturations in the 90s on room air. No Ativan required in the past 24 hours. NicoDerm patch remains in place. Sodium 134. Potassium 4.3. Bicarb 22. BUN 6. Creatinine 0.7. Glucose 109. Objective - Vital Signs Vital signs: Vital Signs Temp 98.9 F 06/15/23 06:54 Pulse 81 06/15/23 06:54 Resp 16 06/15/23 06:54 BP 149/96 06/15/23 06:54 Pulse Ox 99 06/15/23 06:54 FiO2 Intake & Output 06/14/23 06/15/23 06/15/23 18:59 06:59 18:59 Intake Total 700 120 Output Total 0 Balance 700 120 Intake: Intake, IV Titration 0 Amount Sodium Chloride 0.9% 1, 0 000 ml @ 75 mls/hr IV . [id number] [facility] Rx#:[id number] Oral 700 120 Output: Urine 0 Other: Voiding Method Toilet Toilet # Voids 3 1 # Bowel Movements 1 - Exam GENERAL EXAM: Alert, active, 43-year-old female, on room air, comfortable in no apparent distress. HEAD: Normocephalic. EYES: Normal reaction of pupils, equal size. NOSE: Clear with pink turbinates. THROAT: No erythema or exudates. NECK: No masses, no JVD. CHEST: No chest wall deformity. LUNGS: Equal air entry with no crackles, wheeze, rhonchi or dullness. CVS: S1 and S2 normal with no audible murmur, regular rhythm. ABDOMEN: No hepatosplenomegaly, normal bowel sounds, no guarding or rigidity. SPINE: No scoliosis or deformity SKIN: No rashes CENTRAL NERVOUS SYSTEM: No focal deficits, tone is normal in all 4 extremities. EXTREMITIES: There is no peripheral edema. No clubbing, no cyanosis. Peripheral pulses are intact. - Labs CBC & Chem 7: 06/14/23 04:04 06/15/23 07:00 Labs: Abnormal Lab Results - Last 24 Hours (Table) 06/15/23 Range/Units 07:00 Sodium 134 L (135-145) mmol/L BUN 5.5 L (9.0-27.0) mg/dL BUN/Creatinine Ratio 7.86 L (12.00-20.00) Ratio Assessment and Plan Assessment: Acute alcohol withdrawal Acute delirium tremens Acute metabolic encephalopathy Facial trauma but no significant findings on CT of the head and cervical spine History of seizure disorder related to alcohol withdrawal Hypovolemic hyponatremia, improved Hypokalemia, recovered History of alcoholism Plan: The patient was seen and evaluated Labs and medications reviewed Stable and on room air Cleared for discharge from pulmonary standpoint Educated regarding the importance of complete alcohol cessation This patient was seen independently by the pulmonary nurse practitioner addressing pulmonary issues I have personally seen and examined the patient, performed the documentation and the assessment and plan as written. Number of minutes spent on the visit: 22.
== END 2023-06-15 12:47 | disposition home or self-care (01) | DRG 896 ==
LOC: EC 10:13 → 5NMEDONC 14:28 → 3SCARD 06-12 13:59 → 2SICU 06-12 19:38 → 5NMEDONC 06-14 16:47
PROVIDERS: ADMIT Internal Medicine; ATTEND Internal Medicine
DX: F10.231 Alcohol dependence with withdrawal delirium (principal); G92.8 Other toxic encephalopathy; E87.20 Acidosis, unspecified; E87.1 Hypo-osmolality and hyponatremia; R56.9 Unspecified convulsions; E87.8 Other disorders of electrolyte and fluid balance, not elsewhere classified; D53.9 Nutritional anemia, unspecified; E16.2 Hypoglycemia, unspecified; E53.1 Pyridoxine deficiency; F32.A Depression, unspecified; E83.42 Hypomagnesemia; E86.1 Hypovolemia; E80.6 Other disorders of bilirubin metabolism; E87.6 Hypokalemia; Y90.0 Blood alcohol level of less than 20 mg/100 ml; S00.83XA Contusion of other part of head, initial encounter; G62.9 Polyneuropathy, unspecified; M40.202 Unspecified kyphosis, cervical region; F17.210 Nicotine dependence, cigarettes, uncomplicated; Z71.6 Tobacco abuse counseling; Z79.3 Long term (current) use of hormonal contraceptives; Z79.899 Other long term (current) drug therapy; W06.XXXA Fall from bed, initial encounter; Z71.41 Alcohol abuse counseling and surveillance of alcoholic
CPT/HCPCS: 36415; 70450; 70486; 71046; 72125; 80048; 80053; 80306; 80320; 81025; 83605; 83735; 84132; 84484; 85025; 85027; 85610; 85730; 90686; 93005; 95816; 96365; 96366; 96375; 99285

== ENCOUNTER → 2023-07-07 | Outpatient (CLI) | payer BC ==
[2023-07-08 07:41] LABS: Albumin 4.3 g/dL (3.8-4.9); BUN/Creat Ratio 8.75 Ratio (12.00-20.00); Calcium 10.8 mg/dL (8.7-10.3); Carbon Dioxide 24.2 mmol/L (21.6-31.8); Chloride 100 mmol/L (96-109); Glucose 94 mg/dL (70-110); Magnesium 1.7 mg/dL (1.5-2.4); Potassium 4.6 mmol/L (3.5-5.5); Sodium 137 mmol/L (135-145)
== END | disposition home or self-care (01) ==
LOC: LABWHC1 10:26
PROVIDERS: ATTEND Psychiatry & Neurology Neurology
DX: G62.9 Polyneuropathy, unspecified (principal)
CPT/HCPCS: 36415; 80048; 82040; 82607; 83735; 84207; 84425

== ENCOUNTER → 2024-03-26 | Outpatient (CLI) | payer BC ==
--- NOTE | 2024-03-31 10:02 | MM ---
Reason for Exam: Screening (asymptomatic). Last mammogram was performed 1 year(s) and 9 month(s) ago. Patient History: Menarche at age 11. Patient has no children. Premenopausal. Currently using Hormonal Contraceptives. Paternal grandmother had ovarian cancer at or over age 50. Paternal cousin had ovarian cancer under age 50. Risk Values: Damaris 5 year model risk: 0.9%. NCI Lifetime model risk: 10.5%. Prior Study Comparison: 03/05/2013 Screening Mammogram, [facility]. 04/17/2018 Bilateral Screening Mammogram, [facility]. 06/28/2022 Bilateral MG screening mammo w CAD, [facility]. Tissue Density: There are scattered areas of fibroglandular density. Findings: Analyzed By CAD. Right breast: There is no suspicious group of microcalcifications or new suspicious mass. Left breast: There is no suspicious group of microcalcifications or new suspicious mass. Overall Assessment: Negative, BI-RAD 1 Management: Screening Mammogram of both breasts in [address] [facility] will attempt to contact patient to return for supplemental views and ultrasound if indicated. Patient should continue monthly self-breast exams. A clinical breast exam by your physician is recommended on an annual basis. This exam should not preclude additional follow-up of suspicious palpable abnormalities. Note on Damaris scores and lifetime risk: 1. A Damaris score greater than 3% is considered moderate risk. If this is the case, consider specialist referral to assess eligibility for a risk reducing agent. 2. If overall lifetime risk for the development of breast cancer is 20% or higher, the patient may qualify for future screening with alternating mammogram and breast MRI. [facility], , 03/31/2024 9:59 AM. Electronically signed and approved by: Pieter Márquez DO
== END | disposition home or self-care (01) ==
LOC: RADMAMWWP 09:43
PROVIDERS: ATTEND Family Medicine
DX: Z12.31 Encounter for screening mammogram for malignant neoplasm of breast (principal); R92.323 Mammographic fibroglandular density, bilateral breasts; Z80.41 Family history of malignant neoplasm of ovary
CPT/HCPCS: 77067

== ENCOUNTER 2024-05-16 08:20 | Day surgery (SDC) | payer BC ==
[2024-05-16] MEDS: LACTATED RINGERS 1,000 ML IV SCH (09:11)
[2024-05-16 09:19] VITALS: TEMP 97.5
[2024-05-16] MEDS: IV FLUID CONTINUATION 1,000 ML IV ONE ×2 (09:19→09:52)
[2024-05-16] MEDS ORDERED: LIDOCAINE 1% INJ 10MG/ML (20 ML MDV) ONE (09:53)
[2024-05-16] MEDS ORDERED: PROPOFOL 10 MG/ML 20 ML VIAL IV ONE (09:53)
--- NOTE | 2024-05-16 10:06 | P.PCN ---
Date of Procedure: 05/16/24 Procedure(s) Performed: BRIEF HISTORY: Patient is a 44-year-old pleasant white female scheduled for an elective colonoscopy as a part of screening for colon cancer. PROCEDURE PERFORMED: Colonoscopy. PREOPERATIVE DIAGNOSIS: Screening for colon cancer. IV sedation per Anesthesia. PROCEDURE: After informed consent was obtained, the patient, was brought into the endoscopy unit. IV sedation was administered by Anesthesia under continuous monitoring. Digital rectal examination was normal. Initially the Olympus CF-160 flexible video colonoscope was then inserted in the rectum, gradually advanced into the cecum without any difficulty. Careful examination was performed as the scope was gradually being withdrawn. Ileocecal valve and the appendiceal orifice were visualized and appeared normal. Prep was excellent. Mucosa of the cecum, ascending colon, transverse colon, descending colon, sigmoid colon, and rectum appeared normal. Retroflexion was performed in the rectum and no lesions were seen. The patient tolerated the procedure well. IMPRESSION: Normal-appearing colon from rectum to cecum evidence of colorectal neoplasia. RECOMMENDATIONS: Findings of this examination were discussed with the patient as well as her family. She was advised to have repeat screening colonoscopy in 10 years.. 44
[2024-05-16 10:18] VITALS: RESP 16
[2024-05-16 10:40] VITALS: BP 117/72; PULSE 78
== END 2024-05-16 10:47 | disposition home or self-care (01) ==
LOC: ORWHC2ENDO 08:20
PROVIDERS: ATTEND Internal Medicine Gastroenterology
DX: Z12.11 Encounter for screening for malignant neoplasm of colon (principal); F17.200 Nicotine dependence, unspecified, uncomplicated; G62.9 Polyneuropathy, unspecified; Z79.899 Other long term (current) drug therapy
CPT/HCPCS: 81025; J2003; J2704; G0121; 45378